=== PATIENT | male | born 1935 | race African-American/Black ===

== ENCOUNTER 2019-06-06 15:47 | Inpatient (IN) | payer MEDICARE, OTHER ==
[~2019-06-06] VITALS: Ht 165.1 cm; Wt 68.5 kg
--- NOTE | 2019-06-06 16:00 | NUR ---
ED Nurse Note: patient broughtin by ambulance RA 26 from home c/o generalized weakness x 1 day. patient's BP on scene was 86 SBP. upon arrival sbp was 96. 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 patient reports he is ambulatory.
[2019-06-06 16:47] LABS: ANION GAP 10 mmol/L (5-15); BLOOD UREA NITROGEN 12 mg/dL (7-18); CARBON DIOXIDE 25 MMOL/L (21-32); CHLORIDE 109 MMOL/L (98-107); CREATININE 1.4 MG/DL (0.55-1.30); POTASSIUM 4.4 MMOL/L (3.5-5.1); SODIUM 143 MMOL/L (136-145)
[2019-06-06 16:51] LABS: BASOPHILS % (AUTO) 0.9 % (0.0-2.0); HEMATOCRIT 28.1 % (42.0-52.0); HEMOGLOBIN 9.4 G/DL (14.2-18.0); LYMPHOCYTES % (AUTO) 16.7 % (20.0-45.0); MEAN CORPUSCULAR VOLUME 90 FL (80-99); MONOCYTES % (AUTO) 7.1 % (1.0-10.0); NEUTROPHILS % (AUTO) 72.3 % (45.0-75.0); PLATELET COUNT 395 K/UL (150-450); RED BLOOD COUNT 3.11 M/UL (4.70-6.10); RED CELL DISTRIBUTION WIDTH 10.1 % (11.6-14.8); WHITE BLOOD COUNT 16.3 K/UL (4.8-10.8)
[2019-06-06 16:55] VITALS: BP 102/55
[2019-06-06 17:01] LABS: ALANINE AMINOTRANSFERASE 22 U/L (12-78); ALBUMIN 3.1 G/DL (3.4-5.0); ALBUMIN/GLOBULIN RATIO 0.8 (1.0-2.7); ALKALINE PHOSPHATASE 88 U/L (46-116); ASPARTATE AMINO TRANSFERASE 22 U/L (15-37); BILIRUBIN,TOTAL 0.3 MG/DL (0.2-1.0); CKMB 0.6 NG/ML (0.0-3.6); CREATINE KINASE 43 U/L (26-308); PHOSPHORUS 2.9 MG/DL (2.5-4.9)
--- NOTE | 2019-06-06 17:54 | Emergency Room Report ---
History of Present Illness General Chief Complaint: Generalized Weakness Source: EMS Present Illness HPI 83-year-old male presents to emergency room with weakness and dizziness, found to be hypertensive by ALS. pt reported yesterday before bed he felt well, this morning he woke up very weak, tired and confused. As per family at bedside this morning he was confused and she check glucose which was in 260s. Pt also felt very dizzy with an unsteady gait. his hx is singificant for DM, HTN, Asthma, CVA and DVT. he takes anticoagulation. he denies chest pain or SOB. Allergies: Coded Allergies: No Known Allergies (Verified , 07/25/09) Nursing Documentation-PMH Hx Diabetes: Yes Review of Systems All Other Systems: limited - mental status change Physical Exam Vital Signs Date Time Temp Pulse Resp B/P (MAP) Pulse Ox O2 Delivery O2 Flow Rate FiO2 06/06/19 15:42 60 19 99/43 (61) 98 Room Air 06/06/19 16:55 97.8 Sp02 EP Interpretation: reviewed General Appearance: well appearing, no apparent distress, non-toxic Head: normocephalic, atraumatic Eyes: bilateral eye normal inspection ENT: hearing grossly normal, EOM grossly intact, moist mucus membranes Neck: supple Respiratory: lungs clear, normal breath sounds, no respiratory distress, speaking full sentences Cardiovascular #1: regular rate, rhythm, normal capillary refill Cardiovascular #2: 2+ radial (R), 2+ radial (L) Gastrointestinal: soft, non-distended Rectal: deferred Musculoskeletal: moves extm spontaneously, no lower extremity edema Neurologic: alert, motor strength/tone normal, customer specialist III-XII nml as tested, oriented - Person, distal neuro normal, sensory intact, other - confused Psychiatric: mood/affect normal Skin: warm/dry, normal turgor Medical Decision Making ER Course 83yohx of cva, dm, htn, and dvt on AC, pw dizziness, confusion, weakness, found to be hypotensive and confused on exam Given pts hx of cva there is a concern for posterior cerebral cva as pt has presenting symptoms of dizziness. Initial BP was noted to be hypotensive but after fluid bolus patient BP improved and continued to stay stable. Pt swallow exam wnl so given PO food as he requested. Discussed admission vs outpt work up. As pt has multiple risk factors patient admitted for inpatient for further work up Case discussed with Dr Lucio who accepted pt to tele. Laboratory Tests Test 06/06/19 16:00 06/06/19 17:00 06/06/19 17:55 White Blood Count 16.3 K/UL (4.8-10.8) H Red Blood Count 3.11 M/UL (4.70-6.10) L Hemoglobin 9.4 G/DL (14.2-18.0) L Hematocrit 28.1 % (42.0-52.0) L Mean Corpuscular Volume 90 FL (80-99) Mean Corpuscular Hemoglobin 30.3 PG (27.0-31.0) Mean Corpuscular Hemoglobin Concent 33.5 G/DL (32.0-36.0) Red Cell Distribution Width 10.1 % (11.6-14.8) L Platelet Count 395 K/UL (150-450) Mean Platelet Volume 5.8 FL (6.5-10.1) L Neutrophils (%) (Auto) 72.3 % (45.0-75.0) Lymphocytes (%) (Auto) 16.7 % (20.0-45.0) L Monocytes (%) (Auto) 7.1 % (1.0-10.0) Eosinophils (%) (Auto) 3.0 % (0.0-3.0) Basophils (%) (Auto) 0.9 % (0.0-2.0) Sodium Level 143 MMOL/L (136-145) Potassium Level 4.4 MMOL/L (3.5-5.1) Chloride Level 109 MMOL/L (98-107) H Carbon Dioxide Level 25 MMOL/L (21-32) Anion Gap 10 mmol/L (5-15) Blood Urea Nitrogen 12 mg/dL (7-18) Creatinine 1.4 MG/DL (0.55-1.30) H Estimate Glomerular Filtration Rate mL/min (>60) Glucose Level 218 MG/DL (74-106) H Lactic Acid Level 3.40 mmol/L (0.4-2.0) H 2.80 mmol/L (0.66-2.22) H Calcium Level 8.0 MG/DL (8.5-10.1) L Phosphorus Level 2.9 MG/DL (2.5-4.9) Magnesium Level 1.8 MG/DL (1.8-2.4) Total Bilirubin 0.3 MG/DL (0.2-1.0) Aspartate Amino Transferase (AST) 22 U/L (15-37) Alanine Aminotransferase (ALT) 22 U/L (12-78) Alkaline Phosphatase 88 U/L (46-116) Total Creatine Kinase 43 U/L (26-308) Creatine Kinase MB 0.6 NG/ML (0.0-3.6) Creatine Kinase MB Relative Index 1.3 Troponin I 0.000 ng/mL (0.000-0.056) Pro-B-Type Natriuretic Peptide 450 pg/mL (0-125) H Total Protein 7.2 G/DL (6.4-8.2) Albumin 3.1 G/DL (3.4-5.0) L Globulin 4.1 g/dL Albumin/Globulin Ratio 0.8 (1.0-2.7) L Lipase 142 U/L (73-393) Urine Color Yellow Urine Appearance Clear Urine pH 5 (4.5-8.0) Urine Specific [place] 1.020 (1.005-1.035) Urine Protein Negative (NEGATIVE) Urine Glucose (UA) 2+ (NEGATIVE) H Urine Ketones 1+ (NEGATIVE) H Urine Blood Negative (NEGATIVE) Urine Nitrite Negative (NEGATIVE) Urine Bilirubin Negative (NEGATIVE) Urine Urobilinogen 1 MG/DL (0.0-1.0) H Urine Leukocyte Esterase Negative (NEGATIVE) Microbiology Date/Time Source Procedure Growth Status 06/06/19 16:20 Nasal Nares - Final Complete 06/06/19 16:20 Nasal Nares - Final Complete Procedure Result INFLUENZA A ANTIGEN Final INFLUENZAE A RESULT NEGATIVE REF RANGE: NEGATIVE INFLUENZA B ANTIGEN Final INFLUENZAE B RESULT NEGATIVE REF RANGE: NEGATIVE EKG Diagnostic Results EKG Time: 15:53 EP Interpretation: Rate of 61 Rate: normal Rhythm: NSR ST Segments: no acute changes CT/MRI/US Diagnostic Results CT/MRI/US Diagnostic Results : Impression Preliminary Findings Only See Final Report For Complete Findings CT HEAD Without Contrast: Comparison head CT 07/25/2009. Cerebral volume loss. No hemorrhage. Foci of encephalomalacia right frontal, parietal and occipital lobes. There is some gas in the veins in the flight paramedic spaces and right parotid space, presumably iatrogenic. Impression: No acute intracranial pathology. Skull base and bony calvarium are intact. Last Vital Signs Date Time Temp Pulse Resp B/P (MAP) Pulse Ox O2 Delivery O2 Flow Rate FiO2 06/06/19 16:55 97.8 71 16 102/55 100 Room Air Disposition: ADMITTED INPATIENT Condition: Serious Referrals: NON PHYSICIAN (PCP) Manoj Mills M.D. Jun 06, 2019 17:54
[2019-06-06] MEDS ORDERED: CLOPIDOGREL75 MG ORAL (18:11)
[2019-06-06] MEDS ORDERED: AVODART0.5 MG ORAL (18:11)
[2019-06-06] MEDS ORDERED: FERROUS SULFAT325 M2 ORAL (18:11)
[2019-06-06 18:13] LABS: APPEARANCE,URINE CLEAR; BILIRUBIN, URINE NEGATIVE (NEGATIVE); GLUCOSE, URINE (UA) 2+ (NEGATIVE); KETONES,URINE 1+ (NEGATIVE); LEUKOCYTE ESTERASE ,URINE NEGATIVE (NEGATIVE); NITRITE,URINE NEGATIVE (NEGATIVE); PH,URINE 5 (4.5-8.0); PROTEIN,URINE NEGATIVE (NEGATIVE); UROBILINOGEN,URINE 1 MG/DL (0.0-1.0)
[2019-06-06] MEDS ORDERED: TRAMADOL HCL50 MG ORAL (18:13)
[2019-06-06] MEDS ORDERED: CRESTOR10 M2 ORAL (18:13)
[2019-06-06] MEDS ORDERED: TRADJENTA5 MG PO (18:13)
[2019-06-06] MEDS ORDERED: METFORMIN HCL850 M1 ORAL (18:13)
[2019-06-06] MEDS ORDERED: OYSTER SHELL 51 EAC3 PO (18:13)
[2019-06-06 18:16] LABS: COLOR,URINE YELLOW
[2019-06-06] MEDS ORDERED: Cefepime HCl 2 GM in NS 110 ML IV ONE (19:00)
[2019-06-06] MEDS ORDERED: Vancomycin 1 GM in NS 275 ML IV ONE (19:00)
--- NOTE | 2019-06-06 19:13 | NUR ---
HAND-OFF: Report given to Pilar CA.
[2019-06-06 19:15] VITALS: BP 153/63
--- NOTE | 2019-06-06 19:15 | NUR ---
ED Nurse Note: Pt received from LANNY Vizcarra. Pt resting comfortably in bed at this time, aaox4, no acute distress noted. Vss as charted. Pt has IV antibiotics infusing at this time as ordered. Will continue to monitor.
--- NOTE | 2019-06-06 19:16 | Diagnostic Imaging Report ---
Indication: Headache Technique: Contiguous 5 mm thick transaxial imaging of the head obtained in a Siemens Sensation [address] scanner. Soft tissue and bone windows generated. Automatic Exposure Control was utilized. Total Dose length Product (DLP): 1363.[address] Dose Index Volume (CTDIvol): 62.7 mGy Comparison: 07/25/2009 Findings: There is mild prominence of the ventricles, basal cisterns, and cerebral sulci consistent with atrophy. There is a focus of encephalomalacia involving the cortex and subcortical white matter in the right occipital region consistent with an old infarct. This was seen previously. Mild, nonspecific, white matter hypoattenuation is noted throughout the brain consistent with chronic small vessel disease. There is no midline shift, edema, acute hemorrhage, mass effect, or abnormal extra-axial fluid collections. Bones are unremarkable. Impression: No acute intracranial bleed, mass effect or edema. Old right occipital infarct Mild atrophy of the brain. Nonspecific white matter hypoattenuation probably due to chronic small vessel disease. [facility] has communicated the preliminary results to the Emergency Department. Their findings are largely concordant with this report. The CT scanner at [facility] is accredited by the [employer] and the scans are performed using dose optimization techniques as appropriate to a performed exam including Automatic Exposure control.
--- NOTE | 2019-06-06 20:00 | NUR ---
ED Nurse Note: Report given to LANNY Chan.
--- NOTE | 2019-06-06 20:40 | NUR ---
ED Nurse Note: Pt stable to transfer to tele unit. Pt is aaxo4, no acute distress noted. Pt transported to unit via gurney via RN and tech. 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 Pt belongings sent with pt.
--- NOTE | 2019-06-06 20:50 | NUR ---
NURSE NOTES: received pt from ER Pilar RN., pt is AO x4, and pt's daughter at the bedside. pt states no pain at this moment. pt is at the RA no Respiratory distress noted. VSS: 152/72 HR 74 O2sat 96% T 97.5. Right FA 20G and 20G Left Hand clean, intact, and patent. bed at the lowest position, alarmed, and locked. Belonging signed by pt. pt is in Sinus rhythm, and pt wants to be full code status at this moment. Home medications were brought to ER and reviewed at the ER. pt took back home medications to pt's house after done reviewing at the ER. call light within reach. will continue to monitor pt with plan of care.
--- NOTE | 2019-06-06 22:13 | NUR ---
NURSE NOTES: notified Dr. Schulte regarding admission order. will wait for call back.
--- NOTE | 2019-06-06 22:18 | NUR ---
NURSE NOTES: Dr. Schulte put admission orders, will noted and carry on.
--- NOTE | 2019-06-06 22:35 | NUR ---
NURSE NOTES: received orders from Dr. Coyne, will noted and carry on.
[2019-06-06] MEDS: cefTRIAXone 1 GM in D5W 55 ML IVPB SCH (23:59)
[2019-06-07 00:38] VITALS: BP 125/59
[2019-06-07] MEDS ORDERED: Albuterol/Ipratropium 3ml neb HHN PRN (01:00)
[2019-06-07] MEDS ORDERED: Acetaminophen 500mg (ES) tab ORAL PRN (01:00)
--- NOTE | 2019-06-07 01:30 | NUR ---
NURSE NOTES: pt is sleeping in RA, no SOB noted. pt is changing position by himself. call light within reach. will continue to monitor.
[2019-06-07] MEDS ORDERED: traMADol 50mg tab ORAL PRN (03:00)
[2019-06-07 04:00] VITALS: BP 125/67
[2019-06-07] MEDS: NovoLOG Insulin Flexpen SUBQ SCH ×4 (06:15→21:49)
[2019-06-07 07:13] LABS: BASOPHILS % (AUTO) 0.7 % (0.0-2.0); EOSINOPHILS % (AUTO) 4.1 % (0.0-3.0); HEMOGLOBIN 9.7 G/DL (14.2-18.0); LYMPHOCYTES % (AUTO) 22.4 % (20.0-45.0); MEAN CORPUSCULAR VOLUME 92 FL (80-99); NEUTROPHILS % (AUTO) 64.9 % (45.0-75.0); PLATELET COUNT 421 K/UL (150-450); RED BLOOD COUNT 3.17 M/UL (4.70-6.10); RED CELL DISTRIBUTION WIDTH 11.3 % (11.6-14.8)
[2019-06-07 07:22] LABS: ALANINE AMINOTRANSFERASE 21 U/L (12-78); ALBUMIN 2.8 G/DL (3.4-5.0); ALBUMIN/GLOBULIN RATIO 0.7 (1.0-2.7); ALKALINE PHOSPHATASE 84 U/L (46-116); ANION GAP 8 mmol/L (5-15); ASPARTATE AMINO TRANSFERASE 19 U/L (15-37); BILIRUBIN,TOTAL 0.5 MG/DL (0.2-1.0); BLOOD UREA NITROGEN 8 mg/dL (7-18); CALCIUM 7.7 MG/DL (8.5-10.1); CARBON DIOXIDE 24 MMOL/L (21-32); CHLORIDE 114 MMOL/L (98-107); CREATININE 0.9 MG/DL (0.55-1.30); POTASSIUM 3.9 MMOL/L (3.5-5.1); SODIUM 146 MMOL/L (136-145)
--- NOTE | 2019-06-07 07:35 | NUR ---
HAND-OFF: Report given to Regina CA., pt is in stable condition.
--- NOTE | 2019-06-07 07:36 | NUR ---
NURSE NOTES: Received report from LANNY Peralta. Patient in bed resting, no active s/s cardiac, respiratory distress noticed at this time. Patient AOx4, on room air, SR with HR 65. IV on right FA 20G, left hand 20G, asymptomatic, patent, intact. Endorsed dosage for home medication need clarification, will call family member to bring the meds or med list. Bed in lowest position, side rails upx2, call light within reach. Will continue to monitor.
[2019-06-07 08:00] VITALS: BP 142/70
[2019-06-07] MEDS ORDERED: Heparin 5000 units/ml inj SUBQ SCH (09:00)
--- NOTE | 2019-06-07 09:03 | NUR ---
RADIOLOGY DEPT., LATE ENTRY, CHEST X-RAY DONE BY WIL
[2019-06-07] MEDS: Calcium Carbonate 500mg w/Vit D 200iu tab ORAL SCH (09:22)
--- NOTE | 2019-06-07 09:36 | Consultation ---
History of Present Illness General Chief Complaint: Generalized Weakness Present Illness Allergies: Coded Allergies: No Known Allergies (Verified , 07/25/09) Medication History Scheduled Clopidogrel* (Clopidogrel*), Unknown Dose ORAL DAILY, (Reported) Dutasteride (Avodart), 0.5 MG ORAL DAILY, (Reported) Metformin Hcl* (Metformin Hcl*), 850 MG ORAL DAILY, (Reported) Rosuvastatin Calcium* (Crestor*), 10 MG ORAL DAILY, (Reported) Scheduled PRN Tramadol Hcl* (Ultram*), 50 MG ORAL Q6H PRN for For Pain, (Reported) Miscellaneous Medications Calcium Carbonate/Vitamin D3 (Oyster Shell 500Mg-Vit D3 5Mcg), 1 EACH PO, ( Reported) Ferrous Sulfate (Ferrous Sulfate), Unknown Dose ORAL, (Reported) Linagliptin (Tradjenta), 5 MG PO, (Reported) Patient History Healthcare decision maker Resuscitation status Full Code Advanced Directive on File Physical Exam Last 24 Hour Vital Signs Date Time Temp Pulse Resp B/P (MAP) Pulse Ox O2 Delivery O2 Flow Rate FiO2 06/07/19 08:01 70 20 96 Room Air 21 06/07/19 08:00 97.7 68 142/70 (94) 06/07/19 04:00 97.3 65 125/67 (86) 06/07/19 03:26 60 06/07/19 00:38 97.5 65 125/59 (81) 06/06/19 23:36 66 06/06/19 22:48 Room Air 06/06/19 21:22 61 06/06/19 20:40 97.3 70 15 147/66 97 Room Air 06/06/19 19:15 97.8 82 21 153/63 97 Room Air 06/06/19 16:55 97.8 71 16 102/55 100 Room Air 06/06/19 16:13 60 19 Room Air 06/06/19 15:42 60 19 99/43 (61) 98 Room Air Intake and Output 06/06/19 06/07/19 19:00 07:00 Intake Total 2000 ml 55 ml Output Total 300 ml Balance 2000 ml -245 ml IV Total 2000 ml 55 ml Output Urine Total 300 ml Laboratory Tests Test 06/06/19 16:00 06/06/19 17:00 06/06/19 17:55 06/07/19 05:33 White Blood Count 16.3 K/UL (4.8-10.8) H 13.0 K/UL (4.8-10.8) H Red Blood Count 3.11 M/UL (4.70-6.10) L 3.17 M/UL (4.70-6.10) L Hemoglobin 9.4 G/DL (14.2-18.0) L 9.7 G/DL (14.2-18.0) L Hematocrit 28.1 % (42.0-52.0) L 29.0 % (42.0-52.0) L Mean Corpuscular Volume 90 FL (80-99) 92 FL (80-99) Mean Corpuscular Hemoglobin 30.3 PG (27.0-31.0) 30.5 PG (27.0-31.0) Mean Corpuscular Hemoglobin Concent 33.5 G/DL (32.0-36.0) 33.3 G/DL (32.0-36.0) Red Cell Distribution Width 10.1 % (11.6-14.8) L 11.3 % (11.6-14.8) L Platelet Count 395 K/UL (150-450) 421 K/UL (150-450) Mean Platelet Volume 5.8 FL (6.5-10.1) L 5.7 FL (6.5-10.1) L Neutrophils (%) (Auto) 72.3 % (45.0-75.0) 64.9 % (45.0-75.0) Lymphocytes (%) (Auto) 16.7 % (20.0-45.0) L 22.4 % (20.0-45.0) Monocytes (%) (Auto) 7.1 % (1.0-10.0) 8.0 % (1.0-10.0) Eosinophils (%) (Auto) 3.0 % (0.0-3.0) 4.1 % (0.0-3.0) H Basophils (%) (Auto) 0.9 % (0.0-2.0) 0.7 % (0.0-2.0) Sodium Level 143 MMOL/L (136-145) 146 MMOL/L (136-145) H Potassium Level 4.4 MMOL/L (3.5-5.1) 3.9 MMOL/L (3.5-5.1) Chloride Level 109 MMOL/L (98-107) H 114 MMOL/L (98-107) H Carbon Dioxide Level 25 MMOL/L (21-32) 24 MMOL/L (21-32) Anion Gap 10 mmol/L (5-15) 8 mmol/L (5-15) Blood Urea Nitrogen 12 mg/dL (7-18) 8 mg/dL (7-18) Creatinine 1.4 MG/DL (0.55-1.30) H 0.9 MG/DL (0.55-1.30) Estimat Glomerular Filtration Rate mL/min (>60) mL/min (>60) Glucose Level 218 MG/DL (74-106) H 95 MG/DL (74-106) # Lactic Acid Level 3.40 mmol/L (0.4-2.0) H 2.80 mmol/L (0.66-2.22) H 1.00 mmol/L (0.4-2.0) Calcium Level 8.0 MG/DL (8.5-10.1) L 7.7 MG/DL (8.5-10.1) L Phosphorus Level 2.9 MG/DL (2.5-4.9) Magnesium Level 1.8 MG/DL (1.8-2.4) Total Bilirubin 0.3 MG/DL (0.2-1.0) 0.5 MG/DL (0.2-1.0) Aspartate Amino Transf (AST/SGOT) 22 U/L (15-37) 19 U/L (15-37) Alanine Aminotransferase (ALT/SGPT) 22 U/L (12-78) 21 U/L (12-78) Alkaline Phosphatase 88 U/L (46-116) 84 U/L (46-116) Total Creatine Kinase 43 U/L (26-308) Creatine Kinase MB 0.6 NG/ML (0.0-3.6) Creatine Kinase MB Relative Index 1.3 Troponin I 0.000 ng/mL (0.000-0.056) Pro-B-Type Natriuretic Peptide 450 pg/mL (0-125) H Total Protein 7.2 G/DL (6.4-8.2) 6.6 G/DL (6.4-8.2) Albumin 3.1 G/DL (3.4-5.0) L 2.8 G/DL (3.4-5.0) L Globulin 4.1 g/dL 3.8 g/dL Albumin/Globulin Ratio 0.8 (1.0-2.7) L 0.7 (1.0-2.7) L Lipase 142 U/L (73-393) Urine Color Yellow Urine Appearance Clear Urine pH 5 (4.5-8.0) Urine Specific [place] 1.020 (1.005-1.035) Urine Protein Negative (NEGATIVE) Urine Glucose (UA) 2+ (NEGATIVE) H Urine Ketones 1+ (NEGATIVE) H Urine Blood Negative (NEGATIVE) Urine Nitrite Negative (NEGATIVE) Urine Bilirubin Negative (NEGATIVE) Urine Urobilinogen 1 MG/DL (0.0-1.0) H Urine Leukocyte Esterase Negative (NEGATIVE) Microbiology Date/Time Source Procedure Growth Status 06/06/19 16:20 Nasal Nares - Final Complete 06/06/19 16:20 Nasal Nares - Final Complete 06/06/19 17:00 Straight Cath Urine Culture - Preliminary NO GROWTH Resulted Height (Feet): 5 Height (Inches): 5.00 Weight (Pounds): 151 Medications Current Medications Medications (Trade) Dose Ordered Sig/Maggie Route PRN Reason Start Time Stop Time Status Last Admin Dose Admin Acetaminophen (Tylenol) 500 mg Q4H PRN ORAL Mild Pain/Temp > 100.5 06/07/19 01:00 07/07/19 00:59 Albuterol/ Ipratropium (Albuterol/ Ipratropium) 3 ml Q6HRT PRN HHN Shortness of Breath 06/07/19 01:00 06/12/19 00:59 Calcium/Vitamin D (OsCal D) 1 tab DAILY ORAL 06/07/19 09:00 07/07/19 08:59 06/07/19 09:22 Ceftriaxone Sodium 1 gm/ Dextrose 55 ml @ 110 mls/hr Q24H IVPB 06/06/19 23:00 06/13/19 22:59 06/06/19 23:59 Clopidogrel Bisulfate (Plavix) 75 mg DAILY ORAL 06/08/19 09:00 07/08/19 08:59 Dextrose (Dextrose 50%) 25 ml Q30M PRN IV Hypoglycemia 06/07/19 01:00 07/07/19 00:59 Dextrose (Dextrose 50%) 50 ml Q30M PRN IV Hypoglycemia 06/07/19 01:00 07/07/19 00:59 Heparin Sodium (Porcine) (Heparin 5000 units/ml) 5,000 units EVERY 12 HOURS SUBQ 06/07/19 09:00 07/07/19 08:59 06/07/19 09:24 Insulin Aspart (NovoLOG) BEFORE MEALS AND HS SUBQ 06/07/19 06:30 07/07/19 06:29 Tramadol HCl (Ultram) 50 mg Q6H PRN ORAL For Pain 06/07/19 03:00 06/14/19 02:59 Assessment/Plan Assessment/Plan: Hematology Consultation REQ MD: Clemente Lucio, RFC: DVT history and AiD eval, on iron RFA: Generalized Weakness Source: EMS DOS: 06/07/19 ID Called to eval by Dr. Lucio, he is a 83-year-old male presents to emergency room with weakness and dizziness, found to be hypertensive by ALS. pt reported yesterday before bed he felt well, this morning he woke up very weak, tired and confused. As per family at bedside this morning he was confused and she check glucose which was in 260s. Pt also felt very dizzy with an unsteady gait. his hx is singificant for DM, HTN, Asthma, CVA and DVT. he takes anticoagulation. he denies chest pain or SOB. Reviewed his meds and is on ferrous sulfate and plavix. Past Medical Hx: DM, HTN, Asthma, CVA and DVT Allergies: No Known Allergies (Verified , 07/25/09) Review of Systems limited - mental status change, neg 14 point except as noted as above Physical Exam Vital Signs: reviewed Gen: well appearing, no apparent distress, nt HEENT: normocephalic, atraumatic, bilateral eye normal inspection ENT: hearing grossly normal, EOM grossly intact, moist mucus membrane PulM: lungs clear, normal breath sounds CV: regular rate, rhythm, no mgr Neuro: non-focal Labs: reviewed Imaging: noted Assessment and Recs: # Dvt of the left leg and active on the right -- the final imaging is pending and pending further results --> continue on lovenox treatment dose --> labs noted, hgb stable, continue to monitor --> no e/o hemolysis # Anemia of iron deficiency as noted in the past --> on ferrous sulfate po --> no hemolysis is noted --> meds reviewed --> have ordered for anemia panel # Dizziness, confusion, weakness, found to be hypotensive and confused on exam --> continue on fluids # Dizziness concerning r/o cva --> CT of the brain is negative, no bleeding noted # Hypotensive but after fluid bolus patient BP improved and continued to stay stable. --> on fluids, to continue # DM2 -- accuchecks qac and qhs --> a1c goal <8 DW Rn and appreciate consultation Galen Recio MD Jun 07, 2019 09:36
--- NOTE | 2019-06-07 09:54 | NUR ---
ST EVALUATION AND D/C SUMMARY: REFERRED FOR SWALLOW EVALUATION BY DR EASLEY (DR RAI PRIMARY MD), SEE EVALUATION IN [facility] ACTIVITY SECTION. DYSPHAGIA RISK FACTORS FOR THIS ADVANCED AGED 83 Y.O.M.: ACUTE DIZZY, HYPER/HYPOTENSIVE, WEAK, AMS - CONFUSED. LUNGS CLEAR NOW, RESP RATE 19 AND 02 SATS GOOD ON ROOM AIR. 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 COMORBIDITIES: ASTHMA, DM, HTN, [facility] IN 2009 FOR DIZZINESS, SMOKING STILL 15 YEARS ONE PACK PER WEEK, NO ETOH, C/O TINNITUS AND HEARING LOSS (RECENTLY SAW ENT) NO MEDS. FROM HOME ON REGULAR TEXTURE DIET AND THIN LIQUIDS. [facility] SOFT CHOPPED DIET AND THIN LIQUIDS WITH GOOD INTAKE. HAS UPPER FULL DENTURES AND MISSING SOME TEETH ON RIGHT LOWER (HAS PARTIAL LOWER DENTURES AT HOME). ALERT AND ABLE TO EXPRESS SELF IN CLEAR SPEECH/VOICE ABOUT HIS DESIRE TO BE TRANSFERRED TO [facility] WHERE HE HAS ALL OF HIS DOCTORS. PATIENT WAS SUPPOSED TO HAVE SURGERY ON HIS LEG (CLOT) TOMORROW. SINCE HE FORGOT HIS GLASSES, HE WAS ASSISTED TO CANCEL THAT APPOINTMENT. INITIAL CONFUSION RESOLVED PATIENT IS ABLE TO RECALL RECENT INFORMATION AND IS ORIENTED X4. INITIAL IMPRESSIONS GROSSLY FUNCTIONAL SWALLOW WITH ALL CONSISTENCIES GIVEN AND PILLS (LARGE WHEN CUT IN HALF), NO OVERT ASPIRATION (? SILENT ASP RISK BUT CVA WAS 20 YEARS AGO AND LUNGS ARE CLEAR). GIVEN THIN LIQUIDS VIA STRAW SEQUENTIAL SIPS, GROSSLY TIMELY AND FUNCTIONAL SWALLOW W/O ORAL RESIDUE NOR OVERT ASPIRATION. GIVEN TSP PUREED AND MASTICATED SOLID (1/2 CRACKER), GROSSLY TIMELY AND FUNCTIONAL SWALLOW W/O ORAL RESIDUE NOR OVERT ASPIRATION RECOMMENDATIONS: CONTINUE WITH PO INTAKE AND UPGRADE TO REGULAR TEXTURE DIET AND THIN LIQUIDS W/O NEED FOR SPECIFIC ASPIRATION PRECAUTIONS AT THIS TIME. WILL D/C FROM [facility] AT THIS TIME DUE TO GROSSLY FUNCTIONAL SWALLOW. D/W MATHEW CA, AND DR RAI (WHO AGREES WITH RECOMMENDATIONS). Addendum: 06/07/19 at 1003 by STUART MATOS PATIENT TOLERATED HIS LARGE PILL WHOLE (WHEN IT WAS CUT IN HALF HIS BASELINE) WITH WATER W/O PROBLEMS. NO POLST/AD REGARDING ARTIFICIAL NUTRITION IF NEEDED.
[2019-06-07 10:02] LABS: FERRITIN 55 NG/ML (8-388); LACTATE DEHYDROGENASE 176 U/L (81-234)
[2019-06-07 10:18] LABS: IRON 75 ug/dL (50-175); TOTAL IRON BINDING CAPACITY 224 ug/dL (250-450)
[2019-06-07 10:19] LABS: % IRON SATURATION 33 % (15-50)
--- NOTE | 2019-06-07 10:22 | Cardiac Electrophysiology PN ---
Subjective Subjective [id number] Objective Last 24 Hour Vital Signs Date Time Temp Pulse Resp B/P (MAP) Pulse Ox O2 Delivery O2 Flow Rate FiO2 06/07/19 08:01 70 20 96 Room Air 21 06/07/19 08:00 97.7 68 142/70 (94) 06/07/19 04:00 97.3 65 125/67 (86) 06/07/19 03:26 60 06/07/19 00:38 97.5 65 125/59 (81) 06/06/19 23:36 66 06/06/19 22:48 Room Air 06/06/19 21:22 61 06/06/19 20:40 97.3 70 15 147/66 97 Room Air 06/06/19 19:15 97.8 82 21 153/63 97 Room Air 06/06/19 16:55 97.8 71 16 102/55 100 Room Air 06/06/19 16:13 60 19 Room Air 06/06/19 15:42 60 19 99/43 (61) 98 Room Air Intake and Output 06/06/19 06/07/19 19:00 07:00 Intake Total 2000 ml 55 ml Output Total 300 ml Balance 2000 ml -245 ml IV Total 2000 ml 55 ml Output Urine Total 300 ml Laboratory Tests Test 06/06/19 16:00 06/06/19 17:00 06/06/19 17:55 06/07/19 05:33 White Blood Count 16.3 K/UL (4.8-10.8) H 13.0 K/UL (4.8-10.8) H Red Blood Count 3.11 M/UL (4.70-6.10) L 3.17 M/UL (4.70-6.10) L Hemoglobin 9.4 G/DL (14.2-18.0) L 9.7 G/DL (14.2-18.0) L Hematocrit 28.1 % (42.0-52.0) L 29.0 % (42.0-52.0) L Mean Corpuscular Volume 90 FL (80-99) 92 FL (80-99) Mean Corpuscular Hemoglobin 30.3 PG (27.0-31.0) 30.5 PG (27.0-31.0) Mean Corpuscular Hemoglobin Concent 33.5 G/DL (32.0-36.0) 33.3 G/DL (32.0-36.0) Red Cell Distribution Width 10.1 % (11.6-14.8) L 11.3 % (11.6-14.8) L Platelet Count 395 K/UL (150-450) 421 K/UL (150-450) Mean Platelet Volume 5.8 FL (6.5-10.1) L 5.7 FL (6.5-10.1) L Neutrophils (%) (Auto) 72.3 % (45.0-75.0) 64.9 % (45.0-75.0) Lymphocytes (%) (Auto) 16.7 % (20.0-45.0) L 22.4 % (20.0-45.0) Monocytes (%) (Auto) 7.1 % (1.0-10.0) 8.0 % (1.0-10.0) Eosinophils (%) (Auto) 3.0 % (0.0-3.0) 4.1 % (0.0-3.0) H Basophils (%) (Auto) 0.9 % (0.0-2.0) 0.7 % (0.0-2.0) Sodium Level 143 MMOL/L (136-145) 146 MMOL/L (136-145) H Potassium Level 4.4 MMOL/L (3.5-5.1) 3.9 MMOL/L (3.5-5.1) Chloride Level 109 MMOL/L (98-107) H 114 MMOL/L (98-107) H Carbon Dioxide Level 25 MMOL/L (21-32) 24 MMOL/L (21-32) Anion Gap 10 mmol/L (5-15) 8 mmol/L (5-15) Blood Urea Nitrogen 12 mg/dL (7-18) 8 mg/dL (7-18) Creatinine 1.4 MG/DL (0.55-1.30) H 0.9 MG/DL (0.55-1.30) Estimat Glomerular Filtration Rate mL/min (>60) mL/min (>60) Glucose Level 218 MG/DL (74-106) H 95 MG/DL (74-106) # Lactic Acid Level 3.40 mmol/L (0.4-2.0) H 2.80 mmol/L (0.66-2.22) H 1.00 mmol/L (0.4-2.0) Calcium Level 8.0 MG/DL (8.5-10.1) L 7.7 MG/DL (8.5-10.1) L Phosphorus Level 2.9 MG/DL (2.5-4.9) Magnesium Level 1.8 MG/DL (1.8-2.4) Total Bilirubin 0.3 MG/DL (0.2-1.0) 0.5 MG/DL (0.2-1.0) Aspartate Amino Transf (AST/SGOT) 22 U/L (15-37) 19 U/L (15-37) Alanine Aminotransferase (ALT/SGPT) 22 U/L (12-78) 21 U/L (12-78) Alkaline Phosphatase 88 U/L (46-116) 84 U/L (46-116) Total Creatine Kinase 43 U/L (26-308) Creatine Kinase MB 0.6 NG/ML (0.0-3.6) Creatine Kinase MB Relative Index 1.3 Troponin I 0.000 ng/mL (0.000-0.056) Pro-B-Type Natriuretic Peptide 450 pg/mL (0-125) H Total Protein 7.2 G/DL (6.4-8.2) 6.6 G/DL (6.4-8.2) Albumin 3.1 G/DL (3.4-5.0) L 2.8 G/DL (3.4-5.0) L Globulin 4.1 g/dL 3.8 g/dL Albumin/Globulin Ratio 0.8 (1.0-2.7) L 0.7 (1.0-2.7) L Lipase 142 U/L (73-393) Urine Color Yellow Urine Appearance Clear Urine pH 5 (4.5-8.0) Urine Specific [place] 1.020 (1.005-1.035) Urine Protein Negative (NEGATIVE) Urine Glucose (UA) 2+ (NEGATIVE) H Urine Ketones 1+ (NEGATIVE) H Urine Blood Negative (NEGATIVE) Urine Nitrite Negative (NEGATIVE) Urine Bilirubin Negative (NEGATIVE) Urine Urobilinogen 1 MG/DL (0.0-1.0) H Urine Leukocyte Esterase Negative (NEGATIVE) Reticulocyte Count Pending Iron Level 75 ug/dL (50-175) Total Iron Binding Capacity 224 ug/dL (250-450) L Percent Iron Saturation 33 % (15-50) Unsaturated Iron Binding 149 ug/dL (112-346) Ferritin 55 NG/ML (8-388) Lactate Dehydrogenase 176 U/L (81-234) Carcinoembryonic Antigen Pending Vitamin B12 Level 499 PG/ML (193-986) Thyroid Stimulating Hormone (TSH) 1.754 uiU/mL (0.358-3.740) Microbiology Date/Time Source Procedure Growth Status 06/06/19 16:20 Nasal Nares - Final Complete 06/06/19 16:20 Nasal Nares - Final Complete 06/06/19 17:00 Straight Cath Urine Culture - Preliminary NO GROWTH Resulted Umer Harley MD Jun 07, 2019 10:22
--- NOTE | 2019-06-07 11:56 | Pulmonology Progress Note ---
Assessment/Plan Assessment/Plan Pulmonary Consultation HPI Patient is a 83-year-old male admitted with with weakness and dizziness, Past history of DM, HTN, Asthma, CVA and DVT. he takes anticoagulation. he denies chest pain or SOB. Allergies: Coded Allergies: No Known Allergies (Verified , 07/25/09) Past Medical History: DM, HTN, Asthma, CVA and DVT All Other Systems: limited - mental status change Physical Exam Vital Signs Noted Date Time Temp Pulse Resp B/P (MAP) Pulse Ox O2 Delivery O2 Flow Rate FiO2 06/06/19 15:42 60 19 99/43 (61) 98 Room Air 06/06/19 16:55 97.8 General Appearance: well appearing, no apparent distress, non-toxic Head: normocephalic, atraumatic Eyes: bilateral eye normal inspection ENT: hearing grossly normal, EOM grossly intact, moist mucus membranes Neck: supple Respiratory: lungs clear, normal breath sounds, no respiratory distress, speaking full sentences Cardiovascular: regular rate, rhythm, HS1, HS2 normal,normal capillary refill Gastrointestinal: soft, non-distended Musculoskeletal: moves extm spontaneously, no lower extremity edema Neurologic: alert, motor strength/tone normal, property 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 III-XII nml as tested, oriented - Person, distal neuro normal, sensory intact, other - confused Skin: warm/dry, normal turgor Impression: Possible Sepsis Hypertension Diabetes Asthma 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 Previous DVT on Lovenox Plan: CXR IV AB per ID HHN AC per Hematology VESSEL [employer]FFIC [employer]ER Medications PPX O2 PRN Laboratory Tests Test 06/06/19 16:00 06/06/19 17:00 06/06/19 17:55 White Blood Count 16.3 K/UL (4.8-10.8) H Red Blood Count 3.11 M/UL (4.70-6.10) L Hemoglobin 9.4 G/DL (14.2-18.0) L Hematocrit 28.1 % (42.0-52.0) L Mean Corpuscular Volume 90 FL (80-99) Mean Corpuscular Hemoglobin 30.3 PG (27.0-31.0) Mean Corpuscular Hemoglobin Concent 33.5 G/DL (32.0-36.0) Red Cell Distribution Width 10.1 % (11.6-14.8) L Platelet Count 395 K/UL (150-450) Mean Platelet Volume 5.8 FL (6.5-10.1) L Neutrophils (%) (Auto) 72.3 % (45.0-75.0) Lymphocytes (%) (Auto) 16.7 % (20.0-45.0) L Monocytes (%) (Auto) 7.1 % (1.0-10.0) Eosinophils (%) (Auto) 3.0 % (0.0-3.0) Basophils (%) (Auto) 0.9 % (0.0-2.0) Sodium Level 143 MMOL/L (136-145) Potassium Level 4.4 MMOL/L (3.5-5.1) Chloride Level 109 MMOL/L (98-107) H Carbon Dioxide Level 25 MMOL/L (21-32) Anion Gap 10 mmol/L (5-15) Blood Urea Nitrogen 12 mg/dL (7-18) Creatinine 1.4 MG/DL (0.55-1.30) H Estimate Glomerular Filtration Rate mL/min (>60) Glucose Level 218 MG/DL (74-106) H Lactic Acid Level 3.40 mmol/L (0.4-2.0) H 2.80 mmol/L (0.66-2.22) H Calcium Level 8.0 MG/DL (8.5-10.1) L Phosphorus Level 2.9 MG/DL (2.5-4.9) Magnesium Level 1.8 MG/DL (1.8-2.4) Total Bilirubin 0.3 MG/DL (0.2-1.0) Aspartate Amino Transferase (AST) 22 U/L (15-37) Alanine Aminotransferase (ALT) 22 U/L (12-78) Alkaline Phosphatase 88 U/L (46-116) Total Creatine Kinase 43 U/L (26-308) Creatine Kinase MB 0.6 NG/ML (0.0-3.6) Creatine Kinase MB Relative Index 1.3 Troponin I 0.000 ng/mL (0.000-0.056) Pro-B-Type Natriuretic Peptide 450 pg/mL (0-125) H Total Protein 7.2 G/DL (6.4-8.2) Albumin 3.1 G/DL (3.4-5.0) L Globulin 4.1 g/dL Albumin/Globulin Ratio 0.8 (1.0-2.7) L Lipase 142 U/L (73-393) Urine Color Yellow Urine Appearance Clear Urine pH 5 (4.5-8.0) Urine Specific [place] 1.020 (1.005-1.035) Urine Protein Negative (NEGATIVE) Urine Glucose (UA) 2+ (NEGATIVE) H Urine Ketones 1+ (NEGATIVE) H Urine Blood Negative (NEGATIVE) Urine Nitrite Negative (NEGATIVE) Urine Bilirubin Negative (NEGATIVE) Urine Urobilinogen 1 MG/DL (0.0-1.0) H Urine Leukocyte Esterase Negative (NEGATIVE) Microbiology Date/Time Source Procedure Growth Status 06/06/19 16:20 Nasal Nares - Final Complete 06/06/19 16:20 Nasal Nares - Final Complete Procedure Result INFLUENZA A ANTIGEN Final INFLUENZAE A RESULT NEGATIVE REF RANGE: NEGATIVE INFLUENZA B ANTIGEN Final INFLUENZAE B RESULT NEGATIVE REF RANGE: NEGATIVE EKG Time: Rate of 61 Rate: normal Rhythm: NSR ST Segments: no acute changes CT HEAD Without Contrast: Comparison head CT 07/25/2009. Cerebral volume loss. No hemorrhage. Foci of encephalomalacia right frontal, parietal and occipital lobes. There is some gas in the veins in the police detective spaces and right parotid space, presumably iatrogenic. Impression: No acute intracranial pathology. Subjective ROS Limited/Unobtainable: No Allergies: Coded Allergies: No Known Allergies (Verified , 07/25/09) Objective Last 24 Hour Vital Signs Date Time Temp Pulse Resp B/P (MAP) Pulse Ox O2 Delivery O2 Flow Rate FiO2 06/07/19 09:00 Room Air 06/07/19 08:01 70 20 96 Room Air 21 06/07/19 08:00 64 06/07/19 08:00 97.7 68 142/70 (94) 06/07/19 04:00 97.3 65 125/67 (86) 06/07/19 03:26 60 06/07/19 00:38 97.5 65 125/59 (81) 06/06/19 23:36 66 06/06/19 22:48 Room Air 06/06/19 21:22 61 06/06/19 20:40 97.3 70 15 147/66 97 Room Air 06/06/19 19:15 97.8 82 21 153/63 97 Room Air 06/06/19 16:55 97.8 71 16 102/55 100 Room Air 06/06/19 16:13 60 19 Room Air 06/06/19 15:42 60 19 99/43 (61) 98 Room Air Intake and Output 06/06/19 06/07/19 19:00 07:00 Intake Total 2000 ml 55 ml Output Total 300 ml Balance 2000 ml -245 ml IV Total 2000 ml 55 ml Output Urine Total 300 ml Microbiology Date/Time Source Procedure Growth Status 06/06/19 16:20 Nasal Nares - Final Complete 06/06/19 16:20 Nasal Nares - Final Complete 06/06/19 17:00 Straight Cath Urine Culture - Preliminary NO GROWTH Resulted Laboratory Tests 06/06/19 16:00: White Blood Count 16.3H, Red Blood Count 3.11L, Hemoglobin 9.4L, Hematocrit 28.1L, Mean Corpuscular Volume 90, Mean Corpuscular Hemoglobin 30.3, Mean Corpuscular Hemoglobin Concent 33.5, Red Cell Distribution Width 10.1L, Platelet Count 395, Mean Platelet Volume 5.8L, Neutrophils (%) (Auto) 72.3, Lymphocytes (%) (Auto) 16.7L, Monocytes (%) (Auto) 7.1, Eosinophils (%) (Auto) 3.0, Basophils (%) (Auto) 0.9, Sodium Level 143, Potassium Level 4.4, Chloride Level 109H, Carbon Dioxide Level 25, Anion Gap 10, Blood Urea Nitrogen 12, Creatinine 1.4H, Estimat Glomerular Filtration Rate , Glucose Level 218H, Lactic Acid Level 3.40H, Calcium Level 8.0L, Phosphorus Level 2.9, Magnesium Level 1.8, Total Bilirubin 0.3, Aspartate Amino Transf (AST/SGOT) 22, Alanine Aminotransferase (ALT/SGPT) 22, Alkaline Phosphatase 88, Total Creatine Kinase 43, Creatine Kinase MB 0.6, Creatine Kinase MB Relative Index 1.3, Troponin I 0.000, Pro-B-Type Natriuretic Peptide 450H, Total Protein 7.2, Albumin 3.1L, Globulin 4.1, Albumin/Globulin Ratio 0.8L, Lipase 142 06/06/19 17:00: Urine Color Yellow, Urine Appearance Clear, Urine pH 5, Urine Specific [place] 1.020, Urine Protein Negative, Urine Glucose (UA) 2+H, Urine Ketones 1+H, Urine Blood Negative, Urine Nitrite Negative, Urine Bilirubin Negative, Urine Urobilinogen 1H, Urine Leukocyte Esterase Negative 06/06/19 17:55: Lactic Acid Level 2.80H 06/07/19 05:33: White Blood Count 13.0H, Red Blood Count 3.17L, Hemoglobin 9.7L, Hematocrit 29.0L, Mean Corpuscular Volume 92, Mean Corpuscular Hemoglobin 30.5, Mean Corpuscular Hemoglobin Concent 33.3, Red Cell Distribution Width 11.3L, Platelet Count 421, Mean Platelet Volume 5.7L, Neutrophils (%) (Auto) 64.9, Lymphocytes (%) (Auto) 22.4, Monocytes (%) (Auto) 8.0, Eosinophils (%) (Auto) 4.1H, Basophils (%) (Auto) 0.7, Sodium Level 146H, Potassium Level 3.9, Chloride Level 114H, Carbon Dioxide Level 24, Anion Gap 8, Blood Urea Nitrogen 8 , Creatinine 0.9, Estimat Glomerular Filtration Rate , Glucose Level 95#, Lactic Acid Level 1.00, Calcium Level 7.7L, Total Bilirubin 0.5, Aspartate Amino Transf (AST/SGOT) 19, Alanine Aminotransferase (ALT/SGPT) 21, Alkaline Phosphatase 84, Total Protein 6.6, Albumin 2.8L, Globulin 3.8, Albumin/Globulin Ratio 0.7L, Reticulocyte Count 2.4H, Iron Level 75, Total Iron Binding Capacity 224L, Percent Iron Saturation 33, Unsaturated Iron Binding 149, Ferritin 55, Lactate Dehydrogenase 176, Carcinoembryonic Antigen [Pending], Vitamin B12 Level 499, Thyroid Stimulating Hormone (TSH) 1.754 06/07/19 05:38: Troponin I 0.004 Current Medications Medications (Trade) Dose Ordered Sig/Maggie Route PRN Reason Start Time Stop Time Status Last Admin Dose Admin Acetaminophen (Tylenol) 500 mg Q4H PRN ORAL Mild Pain/Temp > 100.5 06/07/19 01:00 07/07/19 00:59 Albuterol/ Ipratropium (Albuterol/ Ipratropium) 3 ml Q6HRT PRN HHN Shortness of Breath 06/07/19 01:00 06/12/19 00:59 Calcium/Vitamin D (OsCal D) 1 tab DAILY ORAL 06/07/19 09:00 07/07/19 08:59 06/07/19 09:22 Ceftriaxone Sodium 1 gm/ Dextrose 55 ml @ 110 mls/hr Q24H IVPB 06/06/19 23:00 06/13/19 22:59 06/06/19 23:59 Clonidine HCl (Catapres Tab) 0.1 mg Q2H PRN ORAL For High Blood Pressure 06/07/19 10:30 07/07/19 10:29 Clopidogrel Bisulfate (Plavix) 75 mg DAILY ORAL 06/08/19 09:00 07/08/19 08:59 Dextrose (Dextrose 50%) 25 ml Q30M PRN IV Hypoglycemia 06/07/19 01:00 07/07/19 00:59 Dextrose (Dextrose 50%) 50 ml Q30M PRN IV Hypoglycemia 06/07/19 01:00 07/07/19 00:59 Enoxaparin Sodium (Lovenox) 100 mg QHS SUBQ 06/07/19 21:00 07/07/19 20:59 Insulin Aspart (NovoLOG) BEFORE MEALS AND HS SUBQ 06/07/19 06:30 07/07/19 06:29 Tramadol HCl (Ultram) 50 mg Q6H PRN ORAL For Pain 06/07/19 03:00 06/14/19 02:59 Finn Coyne MD Jun 07, 2019 11:56
[2019-06-07 12:00] VITALS: BP 139/62
--- NOTE | 2019-06-07 14:38 | Diagnostic Imaging Report ---
Indication: Cough Comparison: 07/25/2009 A single view chest radiograph was obtained. Findings: Reticular densities are demonstrated in the right upper lobe and perihilar region. Surgical clips demonstrated in the left hilum. The heart is borderline enlarged. There is no change compared to the prior study. Bones are osteopenic. IMPRESSION: No acute findings Evidence of previous thoracotomy. Scarring in the right perihilar/upper lobe
--- NOTE | 2019-06-07 14:58 | NUR ---
NURSE NOTES: Family member brought the medication bottles, given to pharmacy. Per patient, taking eye drops for glaucoma but does not remember the name of med, provided pharmacy number, [facility], tele : [phone], called pharmacy and clarified name of med. Paged Dr. Ashby for need of continuation of home med, no other than eye drops now. Per Pharmacy, eye drops, [place] is non hospital formulary. Per MD then hold for now. Order noted, entered, carried out.
--- NOTE | 2019-06-07 15:00 | NUR ---
NURSE NOTES: Patient would like RN to call Primary MD ,Dr. Teresa Campo, tele : [phone] for update. Called, nobody answer, left message.
--- NOTE | 2019-06-07 15:15 | Consultation ---
DATE OF CONSULTATION: 06/07/2019 ENDOCRINOLOGY CONSULTATION CONSULTING PHYSICIAN: John Mendoza M.D. REFERRING PHYSICIAN: Clemente Ashby M.D. REASON FOR CONSULTATION: Diabetes management. HISTORY OF PRESENT ILLNESS: The patient is a pleasant 83-year-old male with history of diabetes, hypertension, and hyperlipidemia who presented to the hospital with generalized weakness. The patient was feeling weak and confused. At the time of evaluation was noted to have glucose of 350. Lactic acid was elevated. Endocrinology was consulted. As an outpatient, the patient is taking metformin and Tradjenta. ALLERGIES TO MEDICATION: None. REVIEW OF SYSTEMS: As per history of present illness. MEDICATIONS: Reviewed and reconciled. LABORATORY VALUES: Sodium 142, potassium 4.4, chloride 109, bicarb 25, BUN 12, creatinine 1.4, glucose of 218. Lactic acid of 3.4. WBC of 16, hemoglobin 9.4, hematocrit 28, platelets of 325. Urine positive for glucose and ketones. PAST MEDICAL HISTORY: 1. Diabetes. 2. Hypertension. 3. Hyperlipidemia. PAST SURGICAL HISTORY: None. PHYSICAL EXAMINATION: GENERAL: The patient is lethargic. VITAL SIGNS: Blood pressure is 125/67, pulse 67, temperature 98, respiratory rate of 18. HEENT: Pupils reactive to light. Sclerae anicteric. NECK: No JVD. HEART: Regular. LUNGS: Clear. ABDOMEN: Positive bowel sounds. EXTREMITIES: No clubbing, cyanosis, edema. DIAGNOSES: 1. Leukocytosis. 2. Lactic acidosis. 3. Diabetes, out of control. PLAN: 1. Discontinue metformin in the context of elevated lactic acid. Continue NovoLog sliding scale before meals and at bedtime. Hold off on Tradjenta for now. It is not in formulary at [facility]. 2. I will follow the patient's glucose and adjustment will be done accordingly. Thank you, Dr. Ashby, for the courtesy of this consultation. John Mendoza M.D. DR: SHASHANK JOB#: [id number] CC: VAISHNAVI
--- NOTE | 2019-06-07 15:24 | Diagnostic Imaging Report ---
Indication: TIA TECHNIQUE: Duplex extracranial carotid and vertebral artery sonography performed with color flow imaging and waveform analysis. COMPARISON: None FINDINGS: Right carotid: Grayscale and color-flow imaging demonstrating no hemodynamically significant stenosis within the common carotid artery, extracranial internal carotid artery. Peak systolic and end-diastolic velocities are within normal limits. ICA/CCA ratios are within normal limits. Mild heterogeneous plaques are demonstrated consistent with atherosclerotic disease. Left carotid: Grayscale and color-flow imaging demonstrating no hemodynamically significant stenosis within the common carotid artery, extracranial internal carotid artery. Peak systolic and end-diastolic velocities are within normal limits. ICA/CCA ratios are within normal limits. Mild heterogeneous plaques are demonstrated consistent with atherosclerotic disease. Vertebral arteries: Antegrade flow demonstrated within both vertebral arteries. IMPRESSION: No hemodynamically significant extracranial carotid artery stenosis identified. Mild atherosclerotic disease noted. Based on sonographic criteria, ICA stenosis is less than 50%. Antegrade flow within both vertebral arteries. This report utilizes carotid stenosis grading criteria based on the meeting of Society of radiologists in ultrasound consensus conference, February 2002.
[2019-06-07 16:00] VITALS: BP 155/73
[2019-06-07] MEDS ORDERED: Varibar Pudding 230ml MC PRN (16:00)
[2019-06-07] MEDS ORDERED: Varibar Thin Liquid powder 148gm MC PRN (16:00)
[2019-06-07] MEDS ORDERED: Varibar Honey 250ml MC PRN (16:00)
[2019-06-07] MEDS ORDERED: Varibar Nectar 240ml MC PRN (16:00)
--- NOTE | 2019-06-07 16:09 | NUR ---
CASE MANAGEMENT:REVIEW 83 YR OLD MALE BIBA FROM HOME CC; GENERALIZED WEAKNESS SI: HYPOTENSION 97.8 60 19 99/43 98% ON RA WBC+16.3 IS: 2L NS BOLUS URINE CX CHEST XRAY BLOOD CX : TO TELEMETRY
--- NOTE | 2019-06-07 17:00 | Consultation ---
DATE OF CONSULTATION: 06/07/2019 CARDIOLOGY CONSULTATION CONSULTING PHYSICIAN: Umer Harley M.D. REFERRING PHYSICIAN: Clemente Ashby M.D. REASON FOR CONSULTATION: Generalized weakness and feeling like he may be having a stroke. HISTORY OF PRESENT ILLNESS: The patient is an 83-year-old gentleman with history of hypertension, diabetes, and history of CVA with left-sided weakness as well as history of peripheral vascular disease, who states that had peripheral intervention by [facility] in [facility]. The patient stated that he is supposed to have another stent in his right leg tomorrow by Dr. Dino Pillai. The patient presented to the emergency room with generalized weakness and dizziness and was found to be hypertensive by the paramedics. His blood glucose was also in the 260s. The patient felt very dizzy with unsteady gait. The patient was admitted and a Cardiology consultation was obtained for further evaluation and management. REVIEW OF SYSTEMS: Negative other than what is mentioned in the history of present illness. PAST MEDICAL HISTORY: As mentioned above. FAMILY HISTORY: Noncontributory. SOCIAL HISTORY: The patient lives at home. Does not smoke or drink alcohol. PHYSICAL EXAMINATION: VITAL SIGNS: Show blood pressure 142/70, pulse is 68, respirations 18, he is afebrile. HEAD AND NECK: Showed no JVD or carotid bruits. LUNGS: Clear. CARDIOVASCULAR: Regular S1 and S2 with no gallop or murmur. ABDOMEN: Soft. EXTREMITIES: No pitting edema. LABORATORY AND DIAGNOSTIC DATA: His EKG showed normal sinus rhythm, normal electrocardiogram. His labs show white count 13, hematocrit 9.7, hematocrit 29, and platelet count is 421. Sodium 142, potassium 3.9, BUN of 8, creatinine of 0.9, and glucose of 95. Initial lactate is 2.8. INR is 1. A CT of the brain showed no acute intracranial pathology. ASSESSMENT AND PLAN: 1. Lightheadedness, dizziness. We will get an echocardiogram. Check orthostatic vital signs. Check carotid duplex. His EKG is completely normal. 2. History of hypertension. Add p.r.n. clonidine to his medical regimen until evaluation is completed. 3. Diabetes, on insulin. 4. History of peripheral vascular disease, currently on Plavix. stent in the left lower extremity. We will try to get the records of the procedures from [facility] at [facility]. Get arterial and venous duplex of his lower extremity for further evaluation. 5. Lactic acidosis, possible sepsis. The patient is already on ceftriaxone and received vancomycin in the emergency room as well. 6. Questionable DVT. Lower extremity duplex is pending. The patient is on Lovenox. Further evaluation by Dr. Recio. Thank you very much for allowing me to participate in the care of this patient. Please do not hesitate to contact me for any questions regarding my evaluation. Umer Harley M.D. DR: SHAINA JOB#: [id number] CC:
--- NOTE | 2019-06-07 17:37 | NUR ---
NURSE NOTES: Dr. Recio made aware of result of venous duplex, per MD discontinue Lovenox , start Heparin SQ BID 5000unit
--- NOTE | 2019-06-07 19:33 | NUR ---
HAND-OFF: Report given to LANNY Avina.
--- NOTE | 2019-06-07 19:42 | NUR ---
NURSE NOTES: Received report from LANNY Tapia. Patient is awake lying semi-glynn's; resting comfortably. No signs of acute distress noted; denies pain at this time. AOx4; able to make needs known. Ambulates independently. Checked IV site; patent and flushed. No erythema, bleeding, or infiltration noted. Bed at lowest position, brakes on, siderails up x2. Call light within reach. Will continue to monitor.
[2019-06-07 20:00] VITALS: BP 131/61
[2019-06-07] MEDS ORDERED: Enoxaparin 100mg Inj SUBQ SCH (21:00)
--- NOTE | 2019-06-07 21:45 | Consultation ---
DATE OF CONSULTATION: 06/07/2019 INFECTIOUS DISEASES CONSULTATION CONSULTING PHYSICIAN: Nii Rodriguez M.D. PRIMARY ATTENDING PHYSICIAN: Clemente Ashby M.D. REASON FOR CONSULTATION: Leukocytosis. HISTORY OF PRESENT ILLNESS: This is an 83-year-old male admitted yesterday with weakness, dizziness. The patient states that he had a stroke in 1999 and he felt that he may have a stroke. He was hyperglycemic at the time of evaluation. At the time of admission, he had leukocytosis of 16.3. PAST MEDICAL HISTORY: Significant for CVA, had residual weakness in the left side of the body, but the patient can walk, had deep venous thrombosis one year ago, asthma, COPD, hypertension, diabetes mellitus type 2. ALLERGIES: No known drug allergies. MEDICATIONS: Getting Plavix, enoxaparin, clonidine, insulin, tramadol, albuterol ipratropium inhaler, ceftriaxone. SOCIAL HISTORY: Lives at home with daughter. He is a . He smokes one half pack cigarettes daily. Denies alcohol, drug abuse. REVIEW OF SYSTEMS: No fever. No chills. No nausea. No vomiting. No cough. No chest pain. No problem passing urine. PHYSICAL EXAMINATION: VITAL SIGNS: Temperature 97.7, pulse 70, blood pressure 142/70. GENERAL APPEARANCE: No acute distress, well developed. HEAD AND NECK: [place] conjunctiva. HEART: Normal rate. LUNGS: Clear. ABDOMEN: Soft and nontender. EXTREMITIES: No edema or finger clubbing. LABORATORY AND DIAGNOSTIC DATA: Sodium 146, potassium 3.9, chloride 114, bicarb 24, BUN 8, creatinine 0.9, glucose 95. WBC today is 13, hemoglobin 9.7, hematocrit 29, platelets 421. UA was negative. Urine culture so far no growth. Influenza A and B tests are negative. Chest x-ray was done, report is not available. IMPRESSION: 1. Leukocytosis. 2. COPD. 3. Asthma. 4. Diabetes mellitus type 2. 5. Dizziness. 6. Hypertension. 7. Anemia. 8. Nicotine dependence. RECOMMENDATION: We will follow up the chest x-ray. We will follow up the cultures. We will continue ceftriaxone. At the end of my exam, I thank Dr. Ashby for involving me in the care of this patient. Nii Rodriguez M.D. DR: Ct JOB#: [id number] CC: VAISHNAVI
[2019-06-07] MEDS: Heparin 5000 units/ml inj SUBQ SCH (21:49)
[2019-06-07] MEDS: cefTRIAXone 1 GM in D5W 55 ML IVPB SCH (23:28)
[2019-06-08] VITALS: BP 129/59
--- NOTE | 2019-06-08 02:30 | History and Physical Report ---
DATE OF ADMISSION: 06/06/2019 HISTORY OF PRESENT ILLNESS: The patient needs to be admitted for weakness and hypertension. The patient also complains of dizziness and presyncopal, called 911, also had blurred vision and has history of glaucoma. He has a remote history of CVA with left paresis. He has history of DVT as well. He was hypertensive on arrival, responded to IV fluids and also has leukocytosis and elevated creatinine. Admitted with a negative CT, admitted for those reasons. The patient denies nausea, vomiting, or diarrhea. Denies shortness of breath. Denies cough. Denies chills. Denies orthopnea. PAST MEDICAL HISTORY: Significant for CVA with left paresis, history of DVT, history of lung cancer, iron deficiency anemia, NIDDM, hyperlipidemia, PVD, , and BPH. PAST SURGICAL HISTORY: Eye surgery, history of partial lobectomy for lung cancer, and stent in the lower extremity. ALLERGIES: No known allergies. MEDICATIONS: Plavix, Avodart, ferrous sulfate, Tradjenta, metformin, Crestor, and tramadol. FAMILY HISTORY: Noncontributory. SOCIAL HISTORY: Denies history of drug and alcohol abuse. Does have history of smoking. REVIEW OF SYSTEMS: HEENT: Denies headaches. RESPIRATORY: Denies shortness of breath. Denies cough. CARDIOVASCULAR: Denies chest pain. Denies nausea, vomiting, or diarrhea. EXTREMITIES: Denies pain. CENTRAL NERVOUS SYSTEM: Does have blurred vision, presyncope, and dizziness for one day. PHYSICAL EXAMINATION: VITAL SIGNS: Temperature is 97.3, pulse is 68, blood pressure 140/70. HEENT: [place]ERR[place]. NECK: Supple. No lymphadenopathy. CHEST: Clear to auscultation. CARDIOVASCULAR: Regular rate and rhythm. No murmurs or extra sounds. GASTROINTESTINAL: Soft, nontender, nondistended. No organomegaly. EXTREMITIES: No edema. Moves all four extremities. Does have left-sided weakness, which is from previous stroke . Reflexes on both sides. LABORATORY DATA: WBC of 16.3, hemoglobin 9.4, and platelets 395,000. ASSESSMENT AND PLAN: Presyncope, leukocytosis, history of , history of DVT, hypertension, initially that responded to IV fluids, need to rule out sepsis, need to rule out UTI. I have asked Dr. Nii Rodriguez, Dr. Galen Recio, Dr. Coyne, Dr. Goodman, Dr. Harley, and Dr. Mendoza to see the patient to help with the management of the above-mentioned diagnoses and treatment that includes NIDDM, hypertension, rule out sepsis due to UTI as well as for DVT management. Clemente Ashby M.D. DR: KELSEA JOB#: [id number] CC:
[2019-06-08 04:00] VITALS: BP 159/75
--- NOTE | 2019-06-08 05:08 | NUR ---
NURSE NOTES: Patient is asleep lying semi-glynn's; resting comfortably. No signs of acute distress or pain noted at this time.
[2019-06-08] MEDS: NovoLOG Insulin Flexpen SUBQ SCH ×4 (06:17→20:55)
--- NOTE | 2019-06-08 06:31 | General Progress Note ---
Assessment/Plan Problem List: (1) Lactic acidosis ICD Codes: E87.2 - Acidosis SNOMED: 76455239 (2) Diabetes ICD Codes: E11.9 - Type 2 diabetes mellitus without complications SNOMED: 63564945 (3) Episode of generalized weakness ICD Codes: R53.1 - Weakness SNOMED: 40159252 (4) Generalized weakness ICD Codes: R53.1 - Weakness SNOMED: 61687087 Assessment/Plan: continue to hold off on Metformin and Tradjenta continue NISS ac / hs Subjective Allergies: Coded Allergies: No Known Allergies (Verified , 07/25/09) Subjective events noted glucose values are stable Item Value Date Time Bedside Blood Glucose 122 mg/dl H 06/08/19 0617 Bedside Blood Glucose 92 mg/dl 06/07/19 2149 Bedside Blood Glucose 110 mg/dl 06/07/19 1630 Bedside Blood Glucose 134 mg/dl H 06/07/19 1240 Bedside Blood Glucose 101 mg/dl 06/07/19 0615 Objective Last 24 Hour Vital Signs Date Time Temp Pulse Resp B/P (MAP) Pulse Ox O2 Delivery O2 Flow Rate FiO2 06/08/19 04:19 60 20 95 Room Air 21 06/08/19 04:00 95 06/08/19 04:00 97.7 80 18 159/75 (103) 95 06/08/19 00:00 98.0 70 16 129/59 (82) 96 06/08/19 00:00 70 06/07/19 21:00 Room Air 06/07/19 20:00 67 06/07/19 20:00 98.1 65 15 131/61 (84) 95 06/07/19 16:00 97.7 67 155/73 (100) 16 06/07/19 16:00 64 06/07/19 12:00 64 06/07/19 12:00 97.9 60 139/62 (87) 15 06/07/19 09:00 Room Air 06/07/19 08:01 70 20 96 Room Air 21 06/07/19 08:00 64 06/07/19 08:00 97.7 68 142/70 (94) Intake and Output 06/07/19 06/08/19 19:00 07:00 Intake Total 720 ml Output Total 300 ml Balance 420 ml Intake Oral 720 ml Output Urine Total 300 ml # Voids 1 # Bowel Movements 1 Laboratory Tests 06/07/19 16:10: Troponin I 0.000 06/07/19 22:30: Troponin I 0.000 Height (Feet): 5 Height (Inches): 5.00 Weight (Pounds): 151 General Appearance: no apparent distress Neck: normal alignment Cardiovascular: normal rate Respiratory/Chest: lungs clear Abdomen: normal bowel sounds Pelvis: normal external exam Objective Current Medications Medications (Trade) Dose Ordered Sig/Maggie Route PRN Reason Start Time Stop Time Status Last Admin Dose Admin Acetaminophen (Tylenol) 500 mg Q4H PRN ORAL Mild Pain/Temp > 100.5 06/07/19 01:00 07/07/19 00:59 Albuterol/ Ipratropium (Albuterol/ Ipratropium) 3 ml Q6HRT PRN HHN Shortness of Breath 06/07/19 01:00 06/12/19 00:59 Barium Sulfate (Varibar Honey) 250 ml NOW PRN MC RAD 06/07/19 16:00 06/10/19 15:59 Barium Sulfate (Varibar [place]) 240 ml NOW PRN MC RAD 06/07/19 16:00 06/10/19 15:59 Barium Sulfate (Varibar Pudding) 230 ml NOW PRN MC RAD 06/07/19 16:00 06/10/19 15:59 Barium Sulfate (Varibar Thin Liquid powder) 148 gm NOW PRN MC RAD 06/07/19 16:00 06/10/19 15:59 Brimonidine Tartrate (Alphagan) 1 drop BID BOTH EYES 06/08/19 09:00 07/08/19 08:59 Calcium/Vitamin D (OsCal D) 1 tab DAILY ORAL 06/07/19 09:00 07/07/19 08:59 06/07/19 09:22 Ceftriaxone Sodium 1 gm/ Dextrose 55 ml @ 110 mls/hr Q24H IVPB 06/06/19 23:00 06/13/19 22:59 06/07/19 23:28 Clonidine HCl (Catapres Tab) 0.1 mg Q2H PRN ORAL For High Blood Pressure 06/07/19 10:30 07/07/19 10:29 Clopidogrel Bisulfate (Plavix) 75 mg DAILY ORAL 06/08/19 09:00 07/08/19 08:59 Dextrose (Dextrose 50%) 25 ml Q30M PRN IV Hypoglycemia 06/07/19 01:00 07/07/19 00:59 Dextrose (Dextrose 50%) 50 ml Q30M PRN IV Hypoglycemia 06/07/19 01:00 07/07/19 00:59 Heparin Sodium (Porcine) (Heparin 5000 units/ml) 5,000 units EVERY 12 HOURS SUBQ 06/07/19 21:00 07/07/19 20:59 06/07/19 21:49 Insulin Aspart (NovoLOG) BEFORE MEALS AND HS SUBQ 06/07/19 06:30 07/07/19 06:29 06/08/19 06:17 Timolol Maleate (Timoptic 0.5% Op Soln) 1 drop TWICE A DAY BOTH EYES 06/08/19 09:00 07/08/19 08:59 Tramadol HCl (Ultram) 50 mg Q6H PRN ORAL For Pain 06/07/19 03:00 06/14/19 02:59 John Mendoza MD Jun 08, 2019 06:31
[2019-06-08 07:05] LABS: BASOPHILS % (AUTO) 1.2 % (0.0-2.0); EOSINOPHILS % (AUTO) 4.2 % (0.0-3.0); HEMATOCRIT 31.2 % (42.0-52.0); HEMOGLOBIN 10.6 G/DL (14.2-18.0); LYMPHOCYTES % (AUTO) 25.7 % (20.0-45.0); MEAN CORPUSCULAR VOLUME 91 FL (80-99); MONOCYTES % (AUTO) 7.5 % (1.0-10.0); NEUTROPHILS % (AUTO) 61.4 % (45.0-75.0); PLATELET COUNT 414 K/UL (150-450); RED BLOOD COUNT 3.42 M/UL (4.70-6.10); RED CELL DISTRIBUTION WIDTH 11.3 % (11.6-14.8); WHITE BLOOD COUNT 11.6 K/UL (4.8-10.8)
[2019-06-08 07:15] LABS: ALANINE AMINOTRANSFERASE 21 U/L (12-78); ALBUMIN 2.9 G/DL (3.4-5.0); ALBUMIN/GLOBULIN RATIO 0.7 (1.0-2.7); ALKALINE PHOSPHATASE 90 U/L (46-116); ANION GAP 11 mmol/L (5-15); ASPARTATE AMINO TRANSFERASE 19 U/L (15-37); BILIRUBIN,TOTAL 0.4 MG/DL (0.2-1.0); BLOOD UREA NITROGEN 6 mg/dL (7-18); CALCIUM 8.1 MG/DL (8.5-10.1); CARBON DIOXIDE 25 MMOL/L (21-32); CHLORIDE 107 MMOL/L (98-107); POTASSIUM 3.9 MMOL/L (3.5-5.1); SODIUM 143 MMOL/L (136-145)
--- NOTE | 2019-06-08 07:40 | NUR ---
HAND-OFF: Report given to LANNY Shah. Patient is awake lying high-glynn's eating breakfast. In stable condition.
[2019-06-08 08:00] VITALS: BP 133/84
[2019-06-08] MEDS: Calcium Carbonate 500mg w/Vit D 200iu tab ORAL SCH (08:42)
[2019-06-08] MEDS: Heparin 5000 units/ml inj SUBQ SCH ×2 (08:44→20:55)
[2019-06-08] MEDS: Timolol 0.5% Op Soln 2.5ml BOTH EYES SCH ×2 (08:52→17:31)
[2019-06-08] MEDS: Brimonidine 0.2% Opth Sol BOTH EYES SCH ×2 (08:52→17:30)
--- NOTE | 2019-06-08 09:46 | NUR ---
CASE MANAGEMENT:REVIEW 06/08/19 SI: LIGHTHEADEDNESS. HYPOTENSION 97.7 95 18 159/75 95% ON RA WBC+11.6 GLUCOSE+11.3 IS: IV ROCEPHIN Q24 PLAVIX PO QD HEPARIN SQ Q12 : TELEMETRY
--- NOTE | 2019-06-08 09:55 | Diagnostic Imaging Report ---
Indication: Leg pain, peripheral arterial disease, history of stent graft Technique: Base and duplex images of the bilateral lower extremity arteries Comparison: none Findings: On the right, biphasic waveforms are present at the common femoral artery level. Waveforms remain constant through the superficial femoral artery. There is a flow velocity elevation in the superficial femoral artery distally up to 193 cm/s. Below the knee, waveforms are slightly dampened, flow velocities are slightly decreased, the waveforms are monophasic. On the left, there is what appears to be an synthetic femoral-popliteal bypass graft. There appears to be occlusion of the [place] superficial femoral artery. The bypass graft is patent, without evidence of definite significant flow velocity elevation or focal stenosis. There is some flow velocity elevation at the occipital anastomosis, but color Doppler imaging does not demonstrate any significant stenosis Waveforms are biphasic biphasic waveforms with sharp systolic peaks are seen in the tibial vessels.. Impression: Evidence of stenosis, possibly significant, of the mid to distal right superficial femoral artery. Left femoral popliteal bypass graft is present, patent, without evidence of significant stenosis. No significant distal stenosis is seen on the left.
--- NOTE | 2019-06-08 10:06 | Cardiac Electrophysiology PN ---
Assessment/Plan Assessment/Plan 1. Lightheadedness, dizziness. Echocardiogram EF 60%. Carotid duplex no critical stenosis. His EKG is completely normal. 2. History of hypertension.On p.r.n. clonidine 3. Diabetes, on insulin. 4. History of peripheral vascular disease, currently on Plavix. S/P stent in the left lower extremity. We will try to get the records of the procedures from [facility]. Arterial duplex of his lower extremity result: Impression: Evidence of stenosis, possibly significant, of the mid to distal right superficial femoral artery. Left femoral popliteal bypass graft is present, patent, without evidence of significant stenosis. No significant distal stenosis is seen on the left. On Plavix and add Lipitor 5. Lactic acidosis, possible sepsis. The patient is already on ceftriaxone and received vancomycin in the emergency room as well. 6. Questionable DVT. Lower extremity duplex is pending. The patient is on Lovenox. Further evaluation by Dr. Recio. TIERRA RN Subjective Subjective Feeling better. No CP or SOB. Objective Last 24 Hour Vital Signs Date Time Temp Pulse Resp B/P (MAP) Pulse Ox O2 Delivery O2 Flow Rate FiO2 06/08/19 09:52 Room Air Room Air 06/08/19 08:00 98.2 71 20 133/84 (100) 99 06/08/19 04:19 60 20 95 Room Air 21 06/08/19 04:00 95 06/08/19 04:00 97.7 80 18 159/75 (103) 95 06/08/19 00:00 98.0 70 16 129/59 (82) 96 06/08/19 00:00 70 06/07/19 21:00 Room Air 06/07/19 20:00 67 06/07/19 20:00 98.1 65 15 131/61 (84) 95 06/07/19 16:00 97.7 67 155/73 (100) 16 06/07/19 16:00 64 06/07/19 12:00 64 06/07/19 12:00 97.9 60 139/62 (87) 15 Intake and Output 06/07/19 06/08/19 19:00 07:00 Intake Total 720 ml 295 ml Output Total 300 ml 700 ml Balance 420 ml -405 ml Intake Oral 720 ml 240 ml IV Total 55 ml Output Urine Total 300 ml 700 ml # Voids 1 # Bowel Movements 1 Laboratory Tests Test 06/07/19 16:10 06/07/19 22:30 06/08/19 04:50 Troponin I 0.000 ng/mL (0.000-0.056) 0.000 ng/mL (0.000-0.056) White Blood Count 11.6 K/UL (4.8-10.8) H Red Blood Count 3.42 M/UL (4.70-6.10) L Hemoglobin 10.6 G/DL (14.2-18.0) L Hematocrit 31.2 % (42.0-52.0) L Mean Corpuscular Volume 91 FL (80-99) Mean Corpuscular Hemoglobin 30.9 PG (27.0-31.0) Mean Corpuscular Hemoglobin Concent 33.9 G/DL (32.0-36.0) Red Cell Distribution Width 11.3 % (11.6-14.8) L Platelet Count 414 K/UL (150-450) Mean Platelet Volume 5.3 FL (6.5-10.1) L Neutrophils (%) (Auto) 61.4 % (45.0-75.0) Lymphocytes (%) (Auto) 25.7 % (20.0-45.0) Monocytes (%) (Auto) 7.5 % (1.0-10.0) Eosinophils (%) (Auto) 4.2 % (0.0-3.0) H Basophils (%) (Auto) 1.2 % (0.0-2.0) Sodium Level 143 MMOL/L (136-145) Potassium Level 3.9 MMOL/L (3.5-5.1) Chloride Level 107 MMOL/L (98-107) Carbon Dioxide Level 25 MMOL/L (21-32) Anion Gap 11 mmol/L (5-15) Blood Urea Nitrogen 6 mg/dL (7-18) L Creatinine 1.0 MG/DL (0.55-1.30) Estimat Glomerular Filtration Rate mL/min (>60) Glucose Level 113 MG/DL (74-106) H Calcium Level 8.1 MG/DL (8.5-10.1) L Total Bilirubin 0.4 MG/DL (0.2-1.0) Aspartate Amino Transf (AST/SGOT) 19 U/L (15-37) Alanine Aminotransferase (ALT/SGPT) 21 U/L (12-78) Alkaline Phosphatase 90 U/L (46-116) Total Protein 7.2 G/DL (6.4-8.2) Albumin 2.9 G/DL (3.4-5.0) L Globulin 4.3 g/dL Albumin/Globulin Ratio 0.7 (1.0-2.7) L Microbiology Date/Time Source Procedure Growth Status 06/06/19 16:08 Blood Blood Culture - Preliminary NO GROWTH AFTER 24 HOURS Resulted 06/06/19 15:55 Blood Blood Culture - Preliminary NO GROWTH AFTER 24 HOURS Resulted 06/06/19 16:20 Nasal Nares - Final Complete 06/06/19 16:20 Nasal Nares - Final Complete 06/06/19 17:00 Straight Cath Urine Culture - Preliminary NO GROWTH AFTER 24 HOURS Resulted Objective HEAD AND NECK: No JVD or carotid bruits. LUNGS: Clear. CARDIOVASCULAR: Regular S1 and S2 with no gallop or murmur. ABDOMEN: Soft. EXTREMITIES: No pitting edema. Umer Harley MD Jun 08, 2019 10:06
--- NOTE | 2019-06-08 11:21 | NUR ---
PATIENT REFUSED TO SIGN THE RELEASE OF INFORMATION FORM REQUESTED BY DR.TOLUIE Walker made aware.
--- NOTE | 2019-06-08 11:27 | General Progress Note ---
Assessment/Plan Problem List: (1) Episode of generalized weakness ICD Codes: R53.1 - Weakness SNOMED: 61084774 (2) Lactic acidosis ICD Codes: E87.2 - Acidosis SNOMED: 30775837 (3) Generalized weakness ICD Codes: R53.1 - Weakness SNOMED: 03333419 (4) Diabetes ICD Codes: E11.9 - Type 2 diabetes mellitus without complications SNOMED: 84940674 Status: progressing Assessment/Plan: uti will need abx cva w ambar paresis needs pt as well pvd .consulted dr ellis for arterial stenosis Subjective ROS Limited/Unobtainable: Yes Allergies: Coded Allergies: No Known Allergies (Verified , 07/25/09) Objective Last 24 Hour Vital Signs Date Time Temp Pulse Resp B/P (MAP) Pulse Ox O2 Delivery O2 Flow Rate FiO2 06/08/19 09:52 Room Air Room Air 06/08/19 08:00 84 06/08/19 08:00 98.2 71 20 133/84 (100) 99 06/08/19 04:19 60 20 95 Room Air 21 06/08/19 04:00 95 06/08/19 04:00 97.7 80 18 159/75 (103) 95 06/08/19 00:00 98.0 70 16 129/59 (82) 96 06/08/19 00:00 70 06/07/19 21:00 Room Air 06/07/19 20:00 67 06/07/19 20:00 98.1 65 15 131/61 (84) 95 06/07/19 16:00 97.7 67 155/73 (100) 16 06/07/19 16:00 64 06/07/19 12:00 64 06/07/19 12:00 97.9 60 139/62 (87) 15 Intake and Output 06/07/19 06/08/19 19:00 07:00 Intake Total 720 ml 295 ml Output Total 300 ml 700 ml Balance 420 ml -405 ml Intake Oral 720 ml 240 ml IV Total 55 ml Output Urine Total 300 ml 700 ml # Voids 1 # Bowel Movements 1 Laboratory Tests 06/07/19 16:10: Troponin I 0.000 06/07/19 22:30: Troponin I 0.000 06/08/19 04:50: White Blood Count 11.6H, Red Blood Count 3.42L, Hemoglobin 10.6L, Hematocrit 31.2L, Mean Corpuscular Volume 91, Mean Corpuscular Hemoglobin 30.9, Mean Corpuscular Hemoglobin Concent 33.9, Red Cell Distribution Width 11.3L, Platelet Count 414, Mean Platelet Volume 5.3L, Neutrophils (%) (Auto) 61.4, Lymphocytes (%) (Auto) 25.7, Monocytes (%) (Auto) 7.5, Eosinophils (%) (Auto) 4.2H, Basophils (%) (Auto) 1.2, Sodium Level 143, Potassium Level 3.9, Chloride Level 107, Carbon Dioxide Level 25, Anion Gap 11, Blood Urea Nitrogen 6L, Creatinine 1.0, Estimat Glomerular Filtration Rate , Glucose Level 113H, Calcium Level 8.1L, Total Bilirubin 0.4, Aspartate Amino Transf (AST/SGOT) 19, Alanine Aminotransferase (ALT/SGPT) 21, Alkaline Phosphatase 90, Total Protein 7.2, Albumin 2.9L, Globulin 4.3, Albumin/Globulin Ratio 0.7L Height (Feet): 5 Height (Inches): 5.00 Weight (Pounds): 151 Neck: supple Cardiovascular: normal rate Respiratory/Chest: lungs clear Clemente Ashby MD Jun 08, 2019 11:27
[2019-06-08 12:00] VITALS: BP 149/72
--- NOTE | 2019-06-08 12:50 | Infectious Diseases Prog Note ---
Assessment/Plan Assessment/Plan IMPRESSION: 1. Leukocytosis, improving 2. COPD. 3. Asthma. 4. Diabetes mellitus type 2. 5. Dizziness. 6. Hypertension. 7. Anemia. 8. Nicotine dependence. RECOMMENDATION: We will follow up the cultures. We will continue ceftriaxone. Subjective ROS Limited/Unobtainable: No Constitutional: Reports: no symptoms, other - feels better Respiratory: Reports: dry cough Cardiovascular: Reports: no symptoms Gastrointestinal/Abdominal: Reports: no symptoms Genitourinary: Reports: no symptoms Allergies: Coded Allergies: No Known Allergies (Verified , 07/25/09) Objective Vital Signs Last 24 Hour Vital Signs Date Time Temp Pulse Resp B/P (MAP) Pulse Ox O2 Delivery O2 Flow Rate FiO2 06/08/19 12:00 97.7 68 20 149/72 (97) 95 06/08/19 09:52 Room Air Room Air 06/08/19 08:00 84 06/08/19 08:00 98.2 71 20 133/84 (100) 99 06/08/19 04:19 60 20 95 Room Air 21 06/08/19 04:00 95 06/08/19 04:00 97.7 80 18 159/75 (103) 95 06/08/19 00:00 98.0 70 16 129/59 (82) 96 06/08/19 00:00 70 06/07/19 21:00 Room Air 06/07/19 20:00 67 06/07/19 20:00 98.1 65 15 131/61 (84) 95 06/07/19 16:00 97.7 67 155/73 (100) 16 06/07/19 16:00 64 Height (Feet): 5 Height (Inches): 5.00 Weight (Pounds): 151 General Appearance: no acute distress HEENT: mucous membranes moist Respiratory/Chest: lungs clear Cardiovascular: normal rate Abdomen: soft, non tender Extremities: no edema Neurologic/Psychiatric: alert, oriented x 3, responsive Microbiology Date/Time Source Procedure Growth Status 06/06/19 16:08 Blood Blood Culture - Preliminary NO GROWTH AFTER 24 HOURS Resulted 06/06/19 15:55 Blood Blood Culture - Preliminary NO GROWTH AFTER 24 HOURS Resulted 06/06/19 16:20 Nasal Nares - Final Complete 06/06/19 16:20 Nasal Nares - Final Complete 06/06/19 17:00 Straight Cath Urine Culture - Preliminary NO GROWTH AFTER 24 HOURS Resulted Laboratory Tests Test 06/07/19 16:10 06/07/19 22:30 06/08/19 04:50 Troponin I 0.000 ng/mL (0.000-0.056) 0.000 ng/mL (0.000-0.056) White Blood Count 11.6 K/UL (4.8-10.8) H Red Blood Count 3.42 M/UL (4.70-6.10) L Hemoglobin 10.6 G/DL (14.2-18.0) L Hematocrit 31.2 % (42.0-52.0) L Mean Corpuscular Volume 91 FL (80-99) Mean Corpuscular Hemoglobin 30.9 PG (27.0-31.0) Mean Corpuscular Hemoglobin Concent 33.9 G/DL (32.0-36.0) Red Cell Distribution Width 11.3 % (11.6-14.8) L Platelet Count 414 K/UL (150-450) Mean Platelet Volume 5.3 FL (6.5-10.1) L Neutrophils (%) (Auto) 61.4 % (45.0-75.0) Lymphocytes (%) (Auto) 25.7 % (20.0-45.0) Monocytes (%) (Auto) 7.5 % (1.0-10.0) Eosinophils (%) (Auto) 4.2 % (0.0-3.0) H Basophils (%) (Auto) 1.2 % (0.0-2.0) Sodium Level 143 MMOL/L (136-145) Potassium Level 3.9 MMOL/L (3.5-5.1) Chloride Level 107 MMOL/L (98-107) Carbon Dioxide Level 25 MMOL/L (21-32) Anion Gap 11 mmol/L (5-15) Blood Urea Nitrogen 6 mg/dL (7-18) L Creatinine 1.0 MG/DL (0.55-1.30) Estimat Glomerular Filtration Rate mL/min (>60) Glucose Level 113 MG/DL (74-106) H Calcium Level 8.1 MG/DL (8.5-10.1) L Total Bilirubin 0.4 MG/DL (0.2-1.0) Aspartate Amino Transf (AST/SGOT) 19 U/L (15-37) Alanine Aminotransferase (ALT/SGPT) 21 U/L (12-78) Alkaline Phosphatase 90 U/L (46-116) Total Protein 7.2 G/DL (6.4-8.2) Albumin 2.9 G/DL (3.4-5.0) L Globulin 4.3 g/dL Albumin/Globulin Ratio 0.7 (1.0-2.7) L Current Medications Medications (Trade) Dose Ordered Sig/Maggie Route PRN Reason Start Time Stop Time Status Last Admin Dose Admin Acetaminophen (Tylenol) 500 mg Q4H PRN ORAL Mild Pain/Temp > 100.5 06/07/19 01:00 07/07/19 00:59 Albuterol/ Ipratropium (Albuterol/ Ipratropium) 3 ml Q6HRT PRN HHN Shortness of Breath 06/07/19 01:00 06/12/19 00:59 Atorvastatin Calcium (Lipitor) 20 mg BEDTIME ORAL 06/08/19 21:00 07/08/19 20:59 Barium Sulfate (Varibar Honey) 250 ml NOW PRN MC RAD 06/07/19 16:00 06/10/19 15:59 Barium Sulfate (Varibar [place]) 240 ml NOW PRN MC RAD 06/07/19 16:00 06/10/19 15:59 Barium Sulfate (Varibar Pudding) 230 ml NOW PRN MC RAD 06/07/19 16:00 06/10/19 15:59 Barium Sulfate (Varibar Thin Liquid powder) 148 gm NOW PRN MC RAD 06/07/19 16:00 06/10/19 15:59 Brimonidine Tartrate (Alphagan) 1 drop BID BOTH EYES 06/08/19 09:00 07/08/19 08:59 06/08/19 08:52 Calcium/Vitamin D (OsCal D) 1 tab DAILY ORAL 06/07/19 09:00 07/07/19 08:59 06/08/19 08:42 Ceftriaxone Sodium 1 gm/ Dextrose 55 ml @ 110 mls/hr Q24H IVPB 06/06/19 23:00 06/13/19 22:59 06/07/19 23:28 Clonidine HCl (Catapres Tab) 0.1 mg Q2H PRN ORAL For High Blood Pressure 06/07/19 10:30 07/07/19 10:29 Clopidogrel Bisulfate (Plavix) 75 mg DAILY ORAL 06/08/19 09:00 07/08/19 08:59 06/08/19 08:42 Dextrose (Dextrose 50%) 25 ml Q30M PRN IV Hypoglycemia 06/07/19 01:00 07/07/19 00:59 Dextrose (Dextrose 50%) 50 ml Q30M PRN IV Hypoglycemia 06/07/19 01:00 07/07/19 00:59 Heparin Sodium (Porcine) (Heparin 5000 units/ml) 5,000 units EVERY 12 HOURS SUBQ 06/07/19 21:00 07/07/19 20:59 06/08/19 08:44 Insulin Aspart (NovoLOG) BEFORE MEALS AND HS SUBQ 06/07/19 06:30 07/07/19 06:29 06/08/19 12:12 Timolol Maleate (Timoptic 0.5% Op Soln) 1 drop TWICE A DAY BOTH EYES 06/08/19 09:00 07/08/19 08:59 06/08/19 08:52 Tramadol HCl (Ultram) 50 mg Q6H PRN ORAL For Pain 06/07/19 03:00 06/14/19 02:59 Nii Rodriguez MD Jun 08, 2019 12:50
[2019-06-08 16:00] VITALS: BP 140/61
--- NOTE | 2019-06-08 16:19 | Hematology/Onc Progress Note ---
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 --> only hep sq needed # Anemia of iron deficiency as noted in the past --> on ferrous sulfate po --> no hemolysis is noted --> meds reviewed --> have ordered for anemia panel # Dizziness, confusion, weakness, found to be hypotensive and confused on exam --> continue on fluids # Dizziness concerning r/o cva --> CT of the brain is negative, no bleeding noted # Hypotensive but after fluid bolus patient BP improved and continued to stay stable. --> on fluids, to continue # DM2 -- accuchecks qac and qhs --> a1c goal <8 DW Rn and appreciate consultation Subjective Allergies: Coded Allergies: No Known Allergies (Verified , 07/25/09) Subjective 06/08: no acute events, us venous duplex reviewed, dc lovenox, started on heparin Objective Objective Current Medications Medications (Trade) Dose Ordered Sig/Maggie Route PRN Reason Start Time Stop Time Status Last Admin Dose Admin Acetaminophen (Tylenol) 500 mg Q4H PRN ORAL Mild Pain/Temp > 100.5 06/07/19 01:00 07/07/19 00:59 Albuterol/ Ipratropium (Albuterol/ Ipratropium) 3 ml Q6HRT PRN HHN Shortness of Breath 06/07/19 01:00 06/12/19 00:59 Atorvastatin Calcium (Lipitor) 20 mg BEDTIME ORAL 06/08/19 21:00 07/08/19 20:59 Barium Sulfate (Varibar Honey) 250 ml NOW PRN MC RAD 06/07/19 16:00 06/10/19 15:59 Barium Sulfate (Varibar [place]) 240 ml NOW PRN MC RAD 06/07/19 16:00 06/10/19 15:59 Barium Sulfate (Varibar Pudding) 230 ml NOW PRN MC RAD 06/07/19 16:00 06/10/19 15:59 Barium Sulfate (Varibar Thin Liquid powder) 148 gm NOW PRN MC RAD 06/07/19 16:00 06/10/19 15:59 Brimonidine Tartrate (Alphagan) 1 drop BID BOTH EYES 06/08/19 09:00 07/08/19 08:59 06/08/19 08:52 Calcium/Vitamin D (OsCal D) 1 tab DAILY ORAL 06/07/19 09:00 07/07/19 08:59 06/08/19 08:42 Ceftriaxone Sodium 1 gm/ Dextrose 55 ml @ 110 mls/hr Q24H IVPB 06/06/19 23:00 06/13/19 22:59 06/07/19 23:28 Clonidine HCl (Catapres Tab) 0.1 mg Q2H PRN ORAL For High Blood Pressure 06/07/19 10:30 07/07/19 10:29 Clopidogrel Bisulfate (Plavix) 75 mg DAILY ORAL 06/08/19 09:00 07/08/19 08:59 06/08/19 08:42 Dextrose (Dextrose 50%) 25 ml Q30M PRN IV Hypoglycemia 06/07/19 01:00 07/07/19 00:59 Dextrose (Dextrose 50%) 50 ml Q30M PRN IV Hypoglycemia 06/07/19 01:00 07/07/19 00:59 Heparin Sodium (Porcine) (Heparin 5000 units/ml) 5,000 units EVERY 12 HOURS SUBQ 06/07/19 21:00 07/07/19 20:59 06/08/19 08:44 Insulin Aspart (NovoLOG) BEFORE MEALS AND HS SUBQ 06/07/19 06:30 07/07/19 06:29 06/08/19 12:12 Timolol Maleate (Timoptic 0.5% Op Soln) 1 drop TWICE A DAY BOTH EYES 06/08/19 09:00 07/08/19 08:59 06/08/19 08:52 Tramadol HCl (Ultram) 50 mg Q6H PRN ORAL For Pain 06/07/19 03:00 06/14/19 02:59 Last 24 Hour Vital Signs Date Time Temp Pulse Resp B/P (MAP) Pulse Ox O2 Delivery O2 Flow Rate FiO2 06/08/19 12:00 70 06/08/19 12:00 97.7 68 20 149/72 (97) 95 06/08/19 09:52 Room Air Room Air 1/9/20 08:00 84 06/08/19 08:00 98.2 71 20 133/84 (100) 99 06/08/19 04:19 60 20 95 Room Air 21 06/08/19 04:00 95 06/08/19 04:00 97.7 80 18 159/75 (103) 95 06/08/19 00:00 98.0 70 16 129/59 (82) 96 06/08/19 00:00 70 06/07/19 21:00 Room Air 06/07/19 20:00 67 06/07/19 20:00 98.1 65 15 131/61 (84) 95 06/07/19 16:00 97.7 67 155/73 (100) 16 06/07/19 16:00 64 06/07/19 12:00 64 06/07/19 12:00 97.9 60 139/62 (87) 15 06/07/19 09:00 Room Air 06/07/19 08:01 70 20 96 Room Air 21 06/07/19 08:00 64 06/07/19 08:00 97.7 68 142/70 (94) 06/07/19 04:00 97.3 65 125/67 (86) 06/07/19 03:26 60 06/07/19 00:38 97.5 65 125/59 (81) 06/06/19 23:36 66 06/06/19 22:48 Room Air 06/06/19 21:22 61 06/06/19 20:40 97.3 70 15 147/66 97 Room Air 06/06/19 19:15 97.8 82 21 153/63 97 Room Air 06/06/19 16:55 97.8 71 16 102/55 100 Room Air 06/06/19 16:13 60 19 Room Air Intake and Output 06/07/19 06/08/19 19:00 07:00 Intake Total 720 ml 295 ml Output Total 300 ml 700 ml Balance 420 ml -405 ml Intake Oral 720 ml 240 ml IV Total 55 ml Output Urine Total 300 ml 700 ml # Voids 1 # Bowel Movements 1 Labs Test 06/06/19 16:00 06/06/19 17:00 06/06/19 17:55 06/07/19 05:33 White Blood Count 16.3 K/UL (4.8-10.8) 13.0 K/UL (4.8-10.8) Red Blood Count 3.11 M/UL (4.70-6.10) 3.17 M/UL (4.70-6.10) Hemoglobin 9.4 G/DL (14.2-18.0) 9.7 G/DL (14.2-18.0) Hematocrit 28.1 % (42.0-52.0) 29.0 % (42.0-52.0) Mean Corpuscular Volume 90 FL (80-99) 92 FL (80-99) Mean Corpuscular Hemoglobin 30.3 PG (27.0-31.0) 30.5 PG (27.0-31.0) Mean Corpuscular Hemoglobin Concent 33.5 G/DL (32.0-36.0) 33.3 G/DL (32.0-36.0) Red Cell Distribution Width 10.1 % (11.6-14.8) 11.3 % (11.6-14.8) Platelet Count 395 K/UL (150-450) 421 K/UL (150-450) Mean Platelet Volume 5.8 FL (6.5-10.1) 5.7 FL (6.5-10.1) Neutrophils (%) (Auto) 72.3 % (45.0-75.0) 64.9 % (45.0-75.0) Lymphocytes (%) (Auto) 16.7 % (20.0-45.0) 22.4 % (20.0-45.0) Monocytes (%) (Auto) 7.1 % (1.0-10.0) 8.0 % (1.0-10.0) Eosinophils (%) (Auto) 3.0 % (0.0-3.0) 4.1 % (0.0-3.0) Basophils (%) (Auto) 0.9 % (0.0-2.0) 0.7 % (0.0-2.0) Sodium Level 143 MMOL/L (136-145) 146 MMOL/L (136-145) Potassium Level 4.4 MMOL/L (3.5-5.1) 3.9 MMOL/L (3.5-5.1) Chloride Level 109 MMOL/L (98-107) 114 MMOL/L (98-107) Carbon Dioxide Level 25 MMOL/L (21-32) 24 MMOL/L (21-32) Anion Gap 10 mmol/L (5-15) 8 mmol/L (5-15) Blood Urea Nitrogen 12 mg/dL (7-18) 8 mg/dL (7-18) Creatinine 1.4 MG/DL (0.55-1.30) 0.9 MG/DL (0.55-1.30) Estimat Glomerular Filtration Rate mL/min (>60) mL/min (>60) Glucose Level 218 MG/DL (74-106) 95 MG/DL (74-106) Lactic Acid Level 3.40 mmol/L (0.4-2.0) 2.80 mmol/L (0.66-2.22) 1.00 mmol/L (0.4-2.0) Calcium Level 8.0 MG/DL (8.5-10.1) 7.7 MG/DL (8.5-10.1) Phosphorus Level 2.9 MG/DL (2.5-4.9) Magnesium Level 1.8 MG/DL (1.8-2.4) Total Bilirubin 0.3 MG/DL (0.2-1.0) 0.5 MG/DL (0.2-1.0) Aspartate Amino Transf (AST/SGOT) 22 U/L (15-37) 19 U/L (15-37) Alanine Aminotransferase (ALT/SGPT) 22 U/L (12-78) 21 U/L (12-78) Alkaline Phosphatase 88 U/L (46-116) 84 U/L (46-116) Total Creatine Kinase 43 U/L (26-308) Creatine Kinase MB 0.6 NG/ML (0.0-3.6) Creatine Kinase MB Relative Index 1.3 Troponin I 0.000 ng/mL (0.000-0.056) Pro-B-Type Natriuretic Peptide 450 pg/mL (0-125) Total Protein 7.2 G/DL (6.4-8.2) 6.6 G/DL (6.4-8.2) Albumin 3.1 G/DL (3.4-5.0) 2.8 G/DL (3.4-5.0) Globulin 4.1 g/dL 3.8 g/dL Albumin/Globulin Ratio 0.8 (1.0-2.7) 0.7 (1.0-2.7) Lipase 142 U/L (73-393) Urine Color Yellow Urine Appearance Clear Urine pH 5 (4.5-8.0) Urine Specific [place] 1.020 (1.005-1.035) Urine Protein Negative (NEGATIVE) Urine Glucose (UA) 2+ (NEGATIVE) Urine Ketones 1+ (NEGATIVE) Urine Blood Negative (NEGATIVE) Urine Nitrite Negative (NEGATIVE) Urine Bilirubin Negative (NEGATIVE) Urine Urobilinogen 1 MG/DL (0.0-1.0) Urine Leukocyte Esterase Negative (NEGATIVE) Reticulocyte Count 2.4 % (0.5-2.0) Iron Level 75 ug/dL (50-175) Total Iron Binding Capacity 224 ug/dL (250-450) Percent Iron Saturation 33 % (15-50) Unsaturated Iron Binding 149 ug/dL (112-346) Ferritin 55 NG/ML (8-388) Lactate Dehydrogenase 176 U/L (81-234) Carcinoembryonic Antigen 2.1 ng/mL (0.0-4.7) Vitamin B12 Level 499 PG/ML (193-986) Thyroid Stimulating Hormone (TSH) 1.754 uiU/mL (0.358-3.740) Test 06/07/19 05:38 06/07/19 16:10 06/07/19 22:30 06/08/19 04:50 Troponin I 0.004 ng/mL (0.000-0.056) 0.000 ng/mL (0.000-0.056) 0.000 ng/mL (0.000-0.056) White Blood Count 11.6 K/UL (4.8-10.8) Red Blood Count 3.42 M/UL (4.70-6.10) Hemoglobin 10.6 G/DL (14.2-18.0) Hematocrit 31.2 % (42.0-52.0) Mean Corpuscular Volume 91 FL (80-99) Mean Corpuscular Hemoglobin 30.9 PG (27.0-31.0) Mean Corpuscular Hemoglobin Concent 33.9 G/DL (32.0-36.0) Red Cell Distribution Width 11.3 % (11.6-14.8) Platelet Count 414 K/UL (150-450) Mean Platelet Volume 5.3 FL (6.5-10.1) Neutrophils (%) (Auto) 61.4 % (45.0-75.0) Lymphocytes (%) (Auto) 25.7 % (20.0-45.0) Monocytes (%) (Auto) 7.5 % (1.0-10.0) Eosinophils (%) (Auto) 4.2 % (0.0-3.0) Basophils (%) (Auto) 1.2 % (0.0-2.0) Sodium Level 143 MMOL/L (136-145) Potassium Level 3.9 MMOL/L (3.5-5.1) Chloride Level 107 MMOL/L (98-107) Carbon Dioxide Level 25 MMOL/L (21-32) Anion Gap 11 mmol/L (5-15) Blood Urea Nitrogen 6 mg/dL (7-18) Creatinine 1.0 MG/DL (0.55-1.30) Estimat Glomerular Filtration Rate mL/min (>60) Glucose Level 113 MG/DL (74-106) Calcium Level 8.1 MG/DL (8.5-10.1) Total Bilirubin 0.4 MG/DL (0.2-1.0) Aspartate Amino Transf (AST/SGOT) 19 U/L (15-37) Alanine Aminotransferase (ALT/SGPT) 21 U/L (12-78) Alkaline Phosphatase 90 U/L (46-116) Total Protein 7.2 G/DL (6.4-8.2) Albumin 2.9 G/DL (3.4-5.0) Globulin 4.3 g/dL Albumin/Globulin Ratio 0.7 (1.0-2.7) Height (Feet): 5 Height (Inches): 5.00 Weight (Pounds): 151 Objective Physical Exam Vital Signs: reviewed Gen: well appearing, no apparent distress, nt HEENT: normocephalic, atraumatic, bilateral eye normal inspection ENT: hearing grossly normal, EOM grossly intact, moist mucus membrane PulM: lungs clear, normal breath sounds CV: regular rate, rhythm, no mgr Neuro: non-focal Galen Recio MD Jun 08, 2019 16:19
--- NOTE | 2019-06-08 19:45 | NUR ---
HAND-OFF: Report given to GAVIN CA.
[2019-06-08 20:00] VITALS: BP 132/59
[2019-06-08] MEDS ORDERED: Atorvastatin 20mg tab ORAL SCH (21:00)
--- NOTE | 2019-06-08 21:11 | Pulmonology Progress Note ---
Assessment/Plan Assessment/Plan Pulmonary Progress Note HPI Patient is a 83-year-old male admitted with with weakness and dizziness, Past history of DM, HTN, Asthma, CVA and DVT. he takes anticoagulation. he denies chest pain or SOB. Less weak today LE Dupplex negative for DVT Allergies: Coded Allergies: No Known Allergies (Verified , 07/25/09) Past Medical History: DM, HTN, Asthma, CVA and DVT All Other Systems: limited - mental status change Physical Exam Vital Signs Noted General Appearance: well appearing, no apparent distress, non-toxic Head: normocephalic, atraumatic Eyes: bilateral eye normal inspection ENT: hearing grossly normal, EOM grossly intact, moist mucus membranes Neck: supple Respiratory: lungs clear, normal breath sounds, no respiratory distress, speaking full sentences Cardiovascular: regular rate, rhythm, HS1, HS2 normal,normal capillary refill Gastrointestinal: soft, non-distended Musculoskeletal: moves extm spontaneously, no lower extremity edema Neurologic: alert, motor strength/tone normal, pantry attendant III-XII nml as tested, oriented - Person, distal neuro normal, sensory intact, other - confused Skin: warm/dry, normal turgor Impression: Possible Sepsis Hypertension Diabetes Asthma 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 Previous DVT on Lovenox Plan: CXR IV AB per ID HHN AC per Hematology - [facility]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 PPX O2 PRN Laboratory Tests Test 06/06/19 16:00 06/06/19 17:00 06/06/19 17:55 White Blood Count 16.3 K/UL (4.8-10.8) H Red Blood Count 3.11 M/UL (4.70-6.10) L Hemoglobin 9.4 G/DL (14.2-18.0) L Hematocrit 28.1 % (42.0-52.0) L Mean Corpuscular Volume 90 FL (80-99) Mean Corpuscular Hemoglobin 30.3 PG (27.0-31.0) Mean Corpuscular Hemoglobin Concent 33.5 G/DL (32.0-36.0) Red Cell Distribution Width 10.1 % (11.6-14.8) L Platelet Count 395 K/UL (150-450) Mean Platelet Volume 5.8 FL (6.5-10.1) L Neutrophils (%) (Auto) 72.3 % (45.0-75.0) Lymphocytes (%) (Auto) 16.7 % (20.0-45.0) L Monocytes (%) (Auto) 7.1 % (1.0-10.0) Eosinophils (%) (Auto) 3.0 % (0.0-3.0) Basophils (%) (Auto) 0.9 % (0.0-2.0) Sodium Level 143 MMOL/L (136-145) Potassium Level 4.4 MMOL/L (3.5-5.1) Chloride Level 109 MMOL/L (98-107) H Carbon Dioxide Level 25 MMOL/L (21-32) Anion Gap 10 mmol/L (5-15) Blood Urea Nitrogen 12 mg/dL (7-18) Creatinine 1.4 MG/DL (0.55-1.30) H Estimate Glomerular Filtration Rate mL/min (>60) Glucose Level 218 MG/DL (74-106) H Lactic Acid Level 3.40 mmol/L (0.4-2.0) H 2.80 mmol/L (0.66-2.22) H Calcium Level 8.0 MG/DL (8.5-10.1) L Phosphorus Level 2.9 MG/DL (2.5-4.9) Magnesium Level 1.8 MG/DL (1.8-2.4) Total Bilirubin 0.3 MG/DL (0.2-1.0) Aspartate Amino Transferase (AST) 22 U/L (15-37) Alanine Aminotransferase (ALT) 22 U/L (12-78) Alkaline Phosphatase 88 U/L (46-116) Total Creatine Kinase 43 U/L (26-308) Creatine Kinase MB 0.6 NG/ML (0.0-3.6) Creatine Kinase MB Relative Index 1.3 Troponin I 0.000 ng/mL (0.000-0.056) Pro-B-Type Natriuretic Peptide 450 pg/mL (0-125) H Total Protein 7.2 G/DL (6.4-8.2) Albumin 3.1 G/DL (3.4-5.0) L Globulin 4.1 g/dL Albumin/Globulin Ratio 0.8 (1.0-2.7) L Lipase 142 U/L (73-393) Urine Color Yellow Urine Appearance Clear Urine pH 5 (4.5-8.0) Urine Specific [place] 1.020 (1.005-1.035) Urine Protein Negative (NEGATIVE) Urine Glucose (UA) 2+ (NEGATIVE) H Urine Ketones 1+ (NEGATIVE) H Urine Blood Negative (NEGATIVE) Urine Nitrite Negative (NEGATIVE) Urine Bilirubin Negative (NEGATIVE) Urine Urobilinogen 1 MG/DL (0.0-1.0) H Urine Leukocyte Esterase Negative (NEGATIVE) Microbiology Date/Time Source Procedure Growth Status 06/06/19 16:20 Nasal Nares - Final Complete 06/06/19 16:20 Nasal Nares - Final Complete Procedure Result INFLUENZA A ANTIGEN Final INFLUENZAE A RESULT NEGATIVE REF RANGE: NEGATIVE INFLUENZA B ANTIGEN Final INFLUENZAE B RESULT NEGATIVE REF RANGE: NEGATIVE EKG Time: Rate of 61 Rate: normal Rhythm: NSR ST Segments: no acute changes CT HEAD Without Contrast: Comparison head CT 07/25/2009. Cerebral volume loss. No hemorrhage. Foci of encephalomalacia right frontal, parietal and occipital lobes. There is some gas in the veins in the process laboratory specialist spaces and right parotid space, presumably iatrogenic. Impression: No acute intracranial pathology. Subjective ROS Limited/Unobtainable: No Allergies: Coded Allergies: No Known Allergies (Verified , 07/25/09) Objective Last 24 Hour Vital Signs Date Time Temp Pulse Resp B/P (MAP) Pulse Ox O2 Delivery O2 Flow Rate FiO2 06/08/19 16:00 97.9 66 20 140/61 (87) 99 06/08/19 16:00 80 06/08/19 12:00 70 06/08/19 12:00 97.7 68 20 149/72 (97) 95 06/08/19 09:52 Room Air Room Air 06/08/19 08:00 84 06/08/19 08:00 98.2 71 20 133/84 (100) 99 06/08/19 04:19 60 20 95 Room Air 21 06/08/19 04:00 95 06/08/19 04:00 97.7 80 18 159/75 (103) 95 06/08/19 00:00 98.0 70 16 129/59 (82) 96 06/08/19 00:00 70 Intake and Output 06/07/19 06/08/19 19:00 07:00 Intake Total 720 ml 295 ml Output Total 300 ml 700 ml Balance 420 ml -405 ml Intake Oral 720 ml 240 ml IV Total 55 ml Output Urine Total 300 ml 700 ml # Voids 1 # Bowel Movements 1 Microbiology Date/Time Source Procedure Growth Status 06/06/19 16:08 Blood Blood Culture - Preliminary NO GROWTH AFTER 24 HOURS Resulted 06/06/19 15:55 Blood Blood Culture - Preliminary NO GROWTH AFTER 24 HOURS Resulted 06/06/19 16:20 Nasal Nares - Final Complete 06/06/19 16:20 Nasal Nares - Final Complete 06/06/19 17:00 Straight Cath Urine Culture - Preliminary NO GROWTH AFTER 24 HOURS Resulted Laboratory Tests 06/07/19 22:30: Troponin I 0.000 06/08/19 04:50: White Blood Count 11.6H, Red Blood Count 3.42L, Hemoglobin 10.6L, Hematocrit 31.2L, Mean Corpuscular Volume 91, Mean Corpuscular Hemoglobin 30.9, Mean Corpuscular Hemoglobin Concent 33.9, Red Cell Distribution Width 11.3L, Platelet Count 414, Mean Platelet Volume 5.3L, Neutrophils (%) (Auto) 61.4, Lymphocytes (%) (Auto) 25.7, Monocytes (%) (Auto) 7.5, Eosinophils (%) (Auto) 4.2H, Basophils (%) (Auto) 1.2, Sodium Level 143, Potassium Level 3.9, Chloride Level 107, Carbon Dioxide Level 25, Anion Gap 11, Blood Urea Nitrogen 6L, Creatinine 1.0, Estimat Glomerular Filtration Rate , Glucose Level 113H, Calcium Level 8.1L, Total Bilirubin 0.4, Aspartate Amino Transf (AST/SGOT) 19, Alanine Aminotransferase (ALT/SGPT) 21, Alkaline Phosphatase 90, Total Protein 7.2, Albumin 2.9L, Globulin 4.3, Albumin/Globulin Ratio 0.7L Current Medications Medications (Trade) Dose Ordered Sig/Maggie Route PRN Reason Start Time Stop Time Status Last Admin Dose Admin Acetaminophen (Tylenol) 500 mg Q4H PRN ORAL Mild Pain/Temp > 100.5 06/07/19 01:00 07/07/19 00:59 Albuterol/ Ipratropium (Albuterol/ Ipratropium) 3 ml Q6HRT PRN HHN Shortness of Breath 06/07/19 01:00 06/12/19 00:59 Atorvastatin Calcium (Lipitor) 20 mg BEDTIME ORAL 06/08/19 21:00 07/08/19 20:59 06/08/19 20:54 Barium Sulfate (Varibar Honey) 250 ml NOW PRN MC RAD 06/07/19 16:00 06/10/19 15:59 Barium Sulfate (Varibar [place]) 240 ml NOW PRN MC RAD 06/07/19 16:00 06/10/19 15:59 Barium Sulfate (Varibar Pudding) 230 ml NOW PRN MC RAD 06/07/19 16:00 06/10/19 15:59 Barium Sulfate (Varibar Thin Liquid powder) 148 gm NOW PRN MC RAD 06/07/19 16:00 06/10/19 15:59 Brimonidine Tartrate (Alphagan) 1 drop BID BOTH EYES 06/08/19 09:00 07/08/19 08:59 06/08/19 17:30 Calcium/Vitamin D (OsCal D) 1 tab DAILY ORAL 06/07/19 09:00 07/07/19 08:59 06/08/19 08:42 Ceftriaxone Sodium 1 gm/ Dextrose 55 ml @ 110 mls/hr Q24H IVPB 06/06/19 23:00 06/13/19 22:59 06/07/19 23:28 Clonidine HCl (Catapres Tab) 0.1 mg Q2H PRN ORAL For High Blood Pressure 06/07/19 10:30 07/07/19 10:29 Clopidogrel Bisulfate (Plavix) 75 mg DAILY ORAL 06/08/19 09:00 07/08/19 08:59 06/08/19 08:42 Dextrose (Dextrose 50%) 25 ml Q30M PRN IV Hypoglycemia 06/07/19 01:00 07/07/19 00:59 Dextrose (Dextrose 50%) 50 ml Q30M PRN IV Hypoglycemia 06/07/19 01:00 07/07/19 00:59 Heparin Sodium (Porcine) (Heparin 5000 units/ml) 5,000 units EVERY 12 HOURS SUBQ 06/07/19 21:00 07/07/19 20:59 06/08/19 20:55 Insulin Aspart (NovoLOG) BEFORE MEALS AND HS SUBQ 06/07/19 06:30 07/07/19 06:29 06/08/19 20:55 Timolol Maleate (Timoptic 0.5% Op Soln) 1 drop TWICE A DAY BOTH EYES 06/08/19 09:00 07/08/19 08:59 06/08/19 17:31 Tramadol HCl (Ultram) 50 mg Q6H PRN ORAL For Pain 06/07/19 03:00 06/14/19 02:59 Finn Coyne MD Jun 08, 2019 21:11
--- NOTE | 2019-06-08 23:42 | General Progress Note ---
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
[2019-06-08] MEDS: cefTRIAXone 1 GM in D5W 55 ML IVPB SCH (23:44)
[2019-06-09] VITALS: BP 128/59
--- NOTE | 2019-06-09 03:56 | NUR ---
NURSE NOTES: Patient is asleep lying semi-glynn's; resting comfortably. No signs of acute distress or pain noted at this time.
[2019-06-09 04:00] VITALS: BP 145/57
--- NOTE | 2019-06-09 05:59 | General Progress Note ---
Assessment/Plan Problem List: (1) Lactic acidosis ICD Codes: E87.2 - Acidosis SNOMED: 39095713 (2) Diabetes ICD Codes: E11.9 - Type 2 diabetes mellitus without complications SNOMED: 53076207 (3) Episode of generalized weakness ICD Codes: R53.1 - Weakness SNOMED: 10860410 (4) Generalized weakness ICD Codes: R53.1 - Weakness SNOMED: 67855413 Status: progressing Assessment/Plan: continue to hold off on Metformin start Januvia 100 mg daily continue NISS ac / hs Subjective Allergies: Coded Allergies: No Known Allergies (Verified , 07/25/09) Subjective events noted glucose values are stable Item Value Date Time Bedside Blood Glucose 129 mg/dl H 06/08/19 2100 Bedside Blood Glucose 127 mg/dl H 06/08/19 1630 Bedside Blood Glucose 145 mg/dl H 06/08/19 1212 Objective Last 24 Hour Vital Signs Date Time Temp Pulse Resp B/P (MAP) Pulse Ox O2 Delivery O2 Flow Rate FiO2 06/09/19 04:00 81 06/09/19 04:00 98.0 81 20 145/57 (86) 95 06/09/19 00:00 97.4 67 20 128/59 (82) 97 06/09/19 00:00 61 06/08/19 21:00 Room Air 06/08/19 20:00 98.1 78 20 132/59 (83) 99 06/08/19 20:00 64 06/08/19 16:00 97.9 66 20 140/61 (87) 99 06/08/19 16:00 80 06/08/19 12:00 70 06/08/19 12:00 97.7 68 20 149/72 (97) 95 06/08/19 09:52 Room Air Room Air 06/08/19 08:00 84 06/08/19 08:00 98.2 71 20 133/84 (100) 99 Intake and Output 06/08/19 06/09/19 19:00 07:00 Output Total 400 ml Balance -400 ml Output Urine Total 400 ml # Voids 1 Height (Feet): 5 Height (Inches): 5.00 Weight (Pounds): 151 General Appearance: no apparent distress Neck: normal alignment Cardiovascular: normal rate Respiratory/Chest: lungs clear Abdomen: normal bowel sounds Objective Current Medications Medications (Trade) Dose Ordered Sig/Maggie Route PRN Reason Start Time Stop Time Status Last Admin Dose Admin Acetaminophen (Tylenol) 500 mg Q4H PRN ORAL Mild Pain/Temp > 100.5 06/07/19 01:00 07/07/19 00:59 Albuterol/ Ipratropium (Albuterol/ Ipratropium) 3 ml Q6HRT PRN HHN Shortness of Breath 06/07/19 01:00 06/12/19 00:59 Atorvastatin Calcium (Lipitor) 20 mg BEDTIME ORAL 06/08/19 21:00 07/08/19 20:59 06/08/19 20:54 Barium Sulfate (Varibar Honey) 250 ml NOW PRN MC RAD 06/07/19 16:00 06/10/19 15:59 Barium Sulfate (Varibar [place]) 240 ml NOW PRN MC RAD 06/07/19 16:00 06/10/19 15:59 Barium Sulfate (Varibar Pudding) 230 ml NOW PRN MC RAD 06/07/19 16:00 06/10/19 15:59 Barium Sulfate (Varibar Thin Liquid powder) 148 gm NOW PRN MC RAD 06/07/19 16:00 06/10/19 15:59 Brimonidine Tartrate (Alphagan) 1 drop BID BOTH EYES 06/08/19 09:00 07/08/19 08:59 06/08/19 17:30 Calcium/Vitamin D (OsCal D) 1 tab DAILY ORAL 06/07/19 09:00 07/07/19 08:59 06/08/19 08:42 Ceftriaxone Sodium 1 gm/ Dextrose 55 ml @ 110 mls/hr Q24H IVPB 06/06/19 23:00 06/13/19 22:59 06/08/19 23:44 Clonidine HCl (Catapres Tab) 0.1 mg Q2H PRN ORAL For High Blood Pressure 06/07/19 10:30 07/07/19 10:29 Clopidogrel Bisulfate (Plavix) 75 mg DAILY ORAL 06/08/19 09:00 07/08/19 08:59 06/08/19 08:42 Dextrose (Dextrose 50%) 25 ml Q30M PRN IV Hypoglycemia 06/07/19 01:00 07/07/19 00:59 Dextrose (Dextrose 50%) 50 ml Q30M PRN IV Hypoglycemia 06/07/19 01:00 07/07/19 00:59 Heparin Sodium (Porcine) (Heparin 5000 units/ml) 5,000 units EVERY 12 HOURS SUBQ 06/07/19 21:00 07/07/19 20:59 06/08/19 20:55 Insulin Aspart (NovoLOG) BEFORE MEALS AND HS SUBQ 06/07/19 06:30 07/07/19 06:29 06/08/19 20:55 Timolol Maleate (Timoptic 0.5% Op Soln) 1 drop TWICE A DAY BOTH EYES 06/08/19 09:00 07/08/19 08:59 06/08/19 17:31 Tramadol HCl (Ultram) 50 mg Q6H PRN ORAL For Pain 06/07/19 03:00 06/14/19 02:59 John Mendoza MD Jun 09, 2019 05:59
[2019-06-09] MEDS: NovoLOG Insulin Flexpen SUBQ SCH ×2 (06:11→11:55)
--- NOTE | 2019-06-09 07:10 | NUR ---
HAND-OFF: Report given to LANNY Shah. Patient is asleep lying semi-glynn's; resting comfortably. In stable condition.
[2019-06-09 07:34] LABS: EOSINOPHILS % (AUTO) 4.9 % (0.0-3.0); HEMATOCRIT 31.1 % (42.0-52.0); HEMOGLOBIN 10.3 G/DL (14.2-18.0); LYMPHOCYTES % (AUTO) 27.4 % (20.0-45.0); MEAN CORPUSCULAR VOLUME 91 FL (80-99); MONOCYTES % (AUTO) 9.5 % (1.0-10.0); NEUTROPHILS % (AUTO) 57.1 % (45.0-75.0); PLATELET COUNT 469 K/UL (150-450); RED BLOOD COUNT 3.42 M/UL (4.70-6.10); RED CELL DISTRIBUTION WIDTH 11.6 % (11.6-14.8); WHITE BLOOD COUNT 10.9 K/UL (4.8-10.8)
[2019-06-09 07:41] LABS: ALANINE AMINOTRANSFERASE 19 U/L (12-78); ALBUMIN/GLOBULIN RATIO 0.7 (1.0-2.7); ALKALINE PHOSPHATASE 93 U/L (46-116); ANION GAP 11 mmol/L (5-15); ASPARTATE AMINO TRANSFERASE 19 U/L (15-37); BILIRUBIN,TOTAL 0.4 MG/DL (0.2-1.0); BLOOD UREA NITROGEN 6 mg/dL (7-18); CALCIUM 8.6 MG/DL (8.5-10.1); CARBON DIOXIDE 25 MMOL/L (21-32); CHLORIDE 107 MMOL/L (98-107); POTASSIUM 3.7 MMOL/L (3.5-5.1); SODIUM 143 MMOL/L (136-145)
[2019-06-09 08:00] VITALS: BP 133/72
[2019-06-09] MEDS: Timolol 0.5% Op Soln 2.5ml BOTH EYES SCH ×2 (08:11→11:54)
[2019-06-09] MEDS: Brimonidine 0.2% Opth Sol BOTH EYES SCH ×2 (08:11→11:54)
[2019-06-09] MEDS: Calcium Carbonate 500mg w/Vit D 200iu tab ORAL SCH (08:12)
[2019-06-09] MEDS: Heparin 5000 units/ml inj SUBQ SCH (08:13)
--- NOTE | 2019-06-09 09:24 | NUR ---
DISCHARGE PLANNING FAXED CLINICALS TO [facility] PER MD'S ORDER
--- NOTE | 2019-06-09 11:07 | Cardiac Electrophysiology PN ---
Assessment/Plan Assessment/Plan 1. Lightheadedness, dizziness. Echocardiogram EF 60%. Carotid duplex no critical stenosis. His EKG is completely normal. 2. History of hypertension.On p.r.n. clonidine 3. Diabetes, on insulin. 4. History of peripheral vascular disease, currently on Plavix. S/P stent in the left lower extremity. Refused to sign to get the records of the procedures from [facility] at [facility]. Arterial duplex of his lower extremity result: Impression: Evidence of stenosis, possibly significant, of the mid to distal right superficial femoral artery. Left femoral popliteal bypass graft is present, patent, without evidence of significant stenosis. No significant distal stenosis is seen on the left. On Plavix and add Lipitor 5. Lactic acidosis, possible sepsis. The patient is already on ceftriaxone and received vancomycin in the emergency room as well. 6. Questionable DVT. Lower extremity duplex is pending. The patient is on Lovenox. Further evaluation by Dr. Recio. TIERRA RN Subjective Subjective Feeling better. No CP or SOB.Alert in NAD. DC in progress Objective Last 24 Hour Vital Signs Date Time Temp Pulse Resp B/P (MAP) Pulse Ox O2 Delivery O2 Flow Rate FiO2 06/09/19 09:40 Room Air 06/09/19 08:00 97.9 92 18 133/72 (92) 97 06/09/19 08:00 101 06/09/19 04:00 81 06/09/19 04:00 98.0 81 20 145/57 (86) 95 06/09/19 00:00 97.4 67 20 128/59 (82) 97 06/09/19 00:00 61 06/08/19 21:00 Room Air 06/08/19 20:00 98.1 78 20 132/59 (83) 99 06/08/19 20:00 64 06/08/19 16:00 97.9 66 20 140/61 (87) 99 06/08/19 16:00 80 06/08/19 12:00 70 06/08/19 12:00 97.7 68 20 149/72 (97) 95 Intake and Output 06/08/19 06/09/19 19:00 07:00 Intake Total 175 ml Output Total 400 ml Balance -400 ml 175 ml Intake Oral 120 ml IV Total 55 ml Output Urine Total 400 ml # Voids 1 2 Laboratory Tests Test 06/09/19 05:40 White Blood Count 10.9 K/UL (4.8-10.8) H Red Blood Count 3.42 M/UL (4.70-6.10) L Hemoglobin 10.3 G/DL (14.2-18.0) L Hematocrit 31.1 % (42.0-52.0) L Mean Corpuscular Volume 91 FL (80-99) Mean Corpuscular Hemoglobin 30.2 PG (27.0-31.0) Mean Corpuscular Hemoglobin Concent 33.2 G/DL (32.0-36.0) Red Cell Distribution Width 11.6 % (11.6-14.8) Platelet Count 469 K/UL (150-450) H Mean Platelet Volume 5.6 FL (6.5-10.1) L Neutrophils (%) (Auto) 57.1 % (45.0-75.0) Lymphocytes (%) (Auto) 27.4 % (20.0-45.0) Monocytes (%) (Auto) 9.5 % (1.0-10.0) Eosinophils (%) (Auto) 4.9 % (0.0-3.0) H Basophils (%) (Auto) 1.0 % (0.0-2.0) Sodium Level 143 MMOL/L (136-145) Potassium Level 3.7 MMOL/L (3.5-5.1) Chloride Level 107 MMOL/L (98-107) Carbon Dioxide Level 25 MMOL/L (21-32) Anion Gap 11 mmol/L (5-15) Blood Urea Nitrogen 6 mg/dL (7-18) L Creatinine 1.0 MG/DL (0.55-1.30) Estimat Glomerular Filtration Rate mL/min (>60) Glucose Level 105 MG/DL (74-106) Calcium Level 8.6 MG/DL (8.5-10.1) Total Bilirubin 0.4 MG/DL (0.2-1.0) Aspartate Amino Transf (AST/SGOT) 19 U/L (15-37) Alanine Aminotransferase (ALT/SGPT) 19 U/L (12-78) Alkaline Phosphatase 93 U/L (46-116) Total Protein 7.5 G/DL (6.4-8.2) Albumin 3.0 G/DL (3.4-5.0) L Globulin 4.5 g/dL Albumin/Globulin Ratio 0.7 (1.0-2.7) L Microbiology Date/Time Source Procedure Growth Status 06/06/19 16:08 Blood Blood Culture - Preliminary NO GROWTH AFTER 48 HOURS Resulted 06/06/19 15:55 Blood Blood Culture - Preliminary NO GROWTH AFTER 48 HOURS Resulted 06/06/19 16:20 Nasal Nares - Final Complete 06/06/19 16:20 Nasal Nares - Final Complete 06/06/19 17:00 Straight Cath Urine Culture - Final NO GROWTH AFTER 48 HOURS Complete Objective HEAD AND NECK: No JVD or carotid bruits. LUNGS: Clear. CARDIOVASCULAR: Regular S1 and S2 with no gallop or murmur. ABDOMEN: Soft. EXTREMITIES: No pitting edema. Umer Harley MD Jun 09, 2019 11:07
[2019-06-09 12:00] VITALS: BP 135/74
--- NOTE | 2019-06-09 12:59 | Hematology/Onc Progress Note ---
Assessment/Plan Assessment/Plan Assessment and Recs: # Lower ext swelling of the left leg and active on the right -- the final imaging ishows no e/o dvt --> lovenox stopped --> no evidence of dvt --> venous duplex: evidence of stenosis, possibly significant, of the mid to distal right superficial femoral artery. --> only hep sq needed # Anemia of iron deficiency as noted in the past --> on ferrous sulfate po --> no hemolysis is noted --> meds reviewed --> have ordered for anemia panel # Thrombocytosis is likely reactive --> trend plt # Dizziness, confusion, weakness, found to be hypotensive and confused on exam --> continue on fluids # Distal sfv stenosis --> on plavix --> per Dr. Harley # Hypotensive but after fluid bolus patient BP improved and continued to stay stable. --> on fluids, to continue # DM2 -- accuchecks qac and qhs --> a1c goal <8 DW Rn and appreciate consultation Subjective Constitutional: Denies: no symptoms, chills, fever, malaise, weakness, other HEENT: Denies: no symptoms, eye pain, blurred vision, tearing, double vision, ear pain, ear discharge, nose pain, nose congestion, throat pain, throat swelling, mouth pain, mouth swelling, other Cardiovascular: Denies: no symptoms, chest pain, edema, irregular heart rate, lightheadedness, palpitations, syncope, other Respiratory: Denies: no symptoms, cough, shortness of breath, SOB with excertion, SOB at rest, sputum, wheezing, other Gastrointestinal/Abdominal: Denies: no symptoms, abdomen distended, abdominal pain, black stools, tarry stools, blood in stool, constipated, diarrhea, difficulty swallowing, nausea, poor appetite, poor fluid intake, rectal bleeding , vomiting, other Neurologic/Psychiatric: Denies: no symptoms, anxiety, depressed, emotional problems, headache, numbness, paresthesia, pre-existing deficit, seizure, tingling, tremors, weakness, other Endocrine: Denies: no symptoms, excessive sweating, flushing, intolerance to cold, intolerance to heat, increased hunger, increased thirst, increased urine, unexplained weight gain, unexplained weight loss, other Allergies: Coded Allergies: No Known Allergies (Verified , 07/25/09) Subjective 06/08: no acute events, us venous duplex reviewed, dc lovenox, started on heparin 06/09: no major changes, labs noted, no bleeding, no f/c, no night sweats Objective Objective Current Medications Medications (Trade) Dose Ordered Sig/Maggie Route PRN Reason Start Time Stop Time Status Last Admin Dose Admin Acetaminophen (Tylenol) 500 mg Q4H PRN ORAL Mild Pain/Temp > 100.5 06/07/19 01:00 07/07/19 00:59 Albuterol/ Ipratropium (Albuterol/ Ipratropium) 3 ml Q6HRT PRN HHN Shortness of Breath 06/07/19 01:00 06/12/19 00:59 Atorvastatin Calcium (Lipitor) 20 mg BEDTIME ORAL 06/08/19 21:00 07/08/19 20:59 06/08/19 20:54 Barium Sulfate (Varibar Honey) 250 ml NOW PRN MC RAD 06/07/19 16:00 06/10/19 15:59 Barium Sulfate (Varibar [place]) 240 ml NOW PRN MC RAD 06/07/19 16:00 06/10/19 15:59 Barium Sulfate (Varibar Pudding) 230 ml NOW PRN MC RAD 06/07/19 16:00 06/10/19 15:59 Barium Sulfate (Varibar Thin Liquid powder) 148 gm NOW PRN MC RAD 06/07/19 16:00 06/10/19 15:59 Brimonidine Tartrate (Alphagan) 1 drop BID BOTH EYES 06/08/19 09:00 07/08/19 08:59 06/09/19 11:54 Calcium/Vitamin D (OsCal D) 1 tab DAILY ORAL 06/07/19 09:00 07/07/19 08:59 06/09/19 08:12 Ceftriaxone Sodium 1 gm/ Dextrose 55 ml @ 110 mls/hr Q24H IVPB 06/06/19 23:00 06/13/19 22:59 06/08/19 23:44 Clonidine HCl (Catapres Tab) 0.1 mg Q2H PRN ORAL For High Blood Pressure 06/07/19 10:30 07/07/19 10:29 Clopidogrel Bisulfate (Plavix) 75 mg DAILY ORAL 06/08/19 09:00 07/08/19 08:59 06/09/19 08:12 Dextrose (Dextrose 50%) 25 ml Q30M PRN IV Hypoglycemia 06/07/19 01:00 07/07/19 00:59 Dextrose (Dextrose 50%) 50 ml Q30M PRN IV Hypoglycemia 06/07/19 01:00 07/07/19 00:59 Heparin Sodium (Porcine) (Heparin 5000 units/ml) 5,000 units EVERY 12 HOURS SUBQ 06/07/19 21:00 07/07/19 20:59 06/09/19 08:13 Insulin Aspart (NovoLOG) BEFORE MEALS AND HS SUBQ 06/07/19 06:30 07/07/19 06:29 06/09/19 11:55 Sitagliptin Phosphate (Januvia) 100 mg ACBREAKFAST ORAL 06/09/19 06:30 07/09/19 06:29 Timolol Maleate (Timoptic 0.5% Op Soln) 1 drop TWICE A DAY BOTH EYES 06/08/19 09:00 07/08/19 08:59 06/09/19 11:54 Tramadol HCl (Ultram) 50 mg Q6H PRN ORAL For Pain 06/07/19 03:00 06/14/19 02:59 Last 24 Hour Vital Signs Date Time Temp Pulse Resp B/P (MAP) Pulse Ox O2 Delivery O2 Flow Rate FiO2 06/09/19 12:00 97.9 66 18 135/74 (94) 99 06/09/19 09:40 Room Air 06/09/19 08:00 97.9 92 18 133/72 (92) 97 06/09/19 08:00 101 06/09/19 04:00 81 06/09/19 04:00 98.0 81 20 145/57 (86) 95 06/09/19 00:00 97.4 67 20 128/59 (82) 97 06/09/19 00:00 61 06/08/19 21:00 Room Air 06/08/19 20:00 98.1 78 20 132/59 (83) 99 06/08/19 20:00 64 06/08/19 16:00 97.9 66 20 140/61 (87) 99 06/08/19 16:00 80 06/08/19 12:00 70 06/08/19 12:00 97.7 68 20 149/72 (97) 95 06/08/19 09:52 Room Air Room Air 06/08/19 08:00 84 06/08/19 08:00 98.2 71 20 133/84 (100) 99 06/08/19 04:19 60 20 95 Room Air 21 06/08/19 04:00 95 06/08/19 04:00 97.7 80 18 159/75 (103) 95 06/08/19 00:00 98.0 70 16 129/59 (82) 96 06/08/19 00:00 70 06/07/19 21:00 Room Air 06/07/19 20:00 67 06/07/19 20:00 98.1 65 15 131/61 (84) 95 06/07/19 16:00 97.7 67 155/73 (100) 16 06/07/19 16:00 64 Intake and Output 06/08/19 06/09/19 19:00 07:00 Intake Total 175 ml Output Total 400 ml Balance -400 ml 175 ml Intake Oral 120 ml IV Total 55 ml Output Urine Total 400 ml # Voids 1 2 Labs Test 06/06/19 16:00 06/06/19 17:00 06/06/19 17:55 06/07/19 05:33 White Blood Count 16.3 K/UL (4.8-10.8) 13.0 K/UL (4.8-10.8) Red Blood Count 3.11 M/UL (4.70-6.10) 3.17 M/UL (4.70-6.10) Hemoglobin 9.4 G/DL (14.2-18.0) 9.7 G/DL (14.2-18.0) Hematocrit 28.1 % (42.0-52.0) 29.0 % (42.0-52.0) Mean Corpuscular Volume 90 FL (80-99) 92 FL (80-99) Mean Corpuscular Hemoglobin 30.3 PG (27.0-31.0) 30.5 PG (27.0-31.0) Mean Corpuscular Hemoglobin Concent 33.5 G/DL (32.0-36.0) 33.3 G/DL (32.0-36.0) Red Cell Distribution Width 10.1 % (11.6-14.8) 11.3 % (11.6-14.8) Platelet Count 395 K/UL (150-450) 421 K/UL (150-450) Mean Platelet Volume 5.8 FL (6.5-10.1) 5.7 FL (6.5-10.1) Neutrophils (%) (Auto) 72.3 % (45.0-75.0) 64.9 % (45.0-75.0) Lymphocytes (%) (Auto) 16.7 % (20.0-45.0) 22.4 % (20.0-45.0) Monocytes (%) (Auto) 7.1 % (1.0-10.0) 8.0 % (1.0-10.0) Eosinophils (%) (Auto) 3.0 % (0.0-3.0) 4.1 % (0.0-3.0) Basophils (%) (Auto) 0.9 % (0.0-2.0) 0.7 % (0.0-2.0) Sodium Level 143 MMOL/L (136-145) 146 MMOL/L (136-145) Potassium Level 4.4 MMOL/L (3.5-5.1) 3.9 MMOL/L (3.5-5.1) Chloride Level 109 MMOL/L (98-107) 114 MMOL/L (98-107) Carbon Dioxide Level 25 MMOL/L (21-32) 24 MMOL/L (21-32) Anion Gap 10 mmol/L (5-15) 8 mmol/L (5-15) Blood Urea Nitrogen 12 mg/dL (7-18) 8 mg/dL (7-18) Creatinine 1.4 MG/DL (0.55-1.30) 0.9 MG/DL (0.55-1.30) Estimat Glomerular Filtration Rate mL/min (>60) mL/min (>60) Glucose Level 218 MG/DL (74-106) 95 MG/DL (74-106) Lactic Acid Level 3.40 mmol/L (0.4-2.0) 2.80 mmol/L (0.66-2.22) 1.00 mmol/L (0.4-2.0) Calcium Level 8.0 MG/DL (8.5-10.1) 7.7 MG/DL (8.5-10.1) Phosphorus Level 2.9 MG/DL (2.5-4.9) Magnesium Level 1.8 MG/DL (1.8-2.4) Total Bilirubin 0.3 MG/DL (0.2-1.0) 0.5 MG/DL (0.2-1.0) Aspartate Amino Transf (AST/SGOT) 22 U/L (15-37) 19 U/L (15-37) Alanine Aminotransferase (ALT/SGPT) 22 U/L (12-78) 21 U/L (12-78) Alkaline Phosphatase 88 U/L (46-116) 84 U/L (46-116) Total Creatine Kinase 43 U/L (26-308) Creatine Kinase MB 0.6 NG/ML (0.0-3.6) Creatine Kinase MB Relative Index 1.3 Troponin I 0.000 ng/mL (0.000-0.056) Pro-B-Type Natriuretic Peptide 450 pg/mL (0-125) Total Protein 7.2 G/DL (6.4-8.2) 6.6 G/DL (6.4-8.2) Albumin 3.1 G/DL (3.4-5.0) 2.8 G/DL (3.4-5.0) Globulin 4.1 g/dL 3.8 g/dL Albumin/Globulin Ratio 0.8 (1.0-2.7) 0.7 (1.0-2.7) Lipase 142 U/L (73-393) Urine Color Yellow Urine Appearance Clear Urine pH 5 (4.5-8.0) Urine Specific [place] 1.020 (1.005-1.035) Urine Protein Negative (NEGATIVE) Urine Glucose (UA) 2+ (NEGATIVE) Urine Ketones 1+ (NEGATIVE) Urine Blood Negative (NEGATIVE) Urine Nitrite Negative (NEGATIVE) Urine Bilirubin Negative (NEGATIVE) Urine Urobilinogen 1 MG/DL (0.0-1.0) Urine Leukocyte Esterase Negative (NEGATIVE) Reticulocyte Count 2.4 % (0.5-2.0) Iron Level 75 ug/dL (50-175) Total Iron Binding Capacity 224 ug/dL (250-450) Percent Iron Saturation 33 % (15-50) Unsaturated Iron Binding 149 ug/dL (112-346) Ferritin 55 NG/ML (8-388) Lactate Dehydrogenase 176 U/L (81-234) Carcinoembryonic Antigen 2.1 ng/mL (0.0-4.7) Vitamin B12 Level 499 PG/ML (193-986) Thyroid Stimulating Hormone (TSH) 1.754 uiU/mL (0.358-3.740) Test 06/07/19 05:38 06/07/19 16:10 06/07/19 22:30 06/08/19 04:50 Troponin I 0.004 ng/mL (0.000-0.056) 0.000 ng/mL (0.000-0.056) 0.000 ng/mL (0.000-0.056) White Blood Count 11.6 K/UL (4.8-10.8) Red Blood Count 3.42 M/UL (4.70-6.10) Hemoglobin 10.6 G/DL (14.2-18.0) Hematocrit 31.2 % (42.0-52.0) Mean Corpuscular Volume 91 FL (80-99) Mean Corpuscular Hemoglobin 30.9 PG (27.0-31.0) Mean Corpuscular Hemoglobin Concent 33.9 G/DL (32.0-36.0) Red Cell Distribution Width 11.3 % (11.6-14.8) Platelet Count 414 K/UL (150-450) Mean Platelet Volume 5.3 FL (6.5-10.1) Neutrophils (%) (Auto) 61.4 % (45.0-75.0) Lymphocytes (%) (Auto) 25.7 % (20.0-45.0) Monocytes (%) (Auto) 7.5 % (1.0-10.0) Eosinophils (%) (Auto) 4.2 % (0.0-3.0) Basophils (%) (Auto) 1.2 % (0.0-2.0) Sodium Level 143 MMOL/L (136-145) Potassium Level 3.9 MMOL/L (3.5-5.1) Chloride Level 107 MMOL/L (98-107) Carbon Dioxide Level 25 MMOL/L (21-32) Anion Gap 11 mmol/L (5-15) Blood Urea Nitrogen 6 mg/dL (7-18) Creatinine 1.0 MG/DL (0.55-1.30) Estimat Glomerular Filtration Rate mL/min (>60) Glucose Level 113 MG/DL (74-106) Calcium Level 8.1 MG/DL (8.5-10.1) Total Bilirubin 0.4 MG/DL (0.2-1.0) Aspartate Amino Transf (AST/SGOT) 19 U/L (15-37) Alanine Aminotransferase (ALT/SGPT) 21 U/L (12-78) Alkaline Phosphatase 90 U/L (46-116) Total Protein 7.2 G/DL (6.4-8.2) Albumin 2.9 G/DL (3.4-5.0) Globulin 4.3 g/dL Albumin/Globulin Ratio 0.7 (1.0-2.7) Test 06/09/19 05:40 White Blood Count 10.9 K/UL (4.8-10.8) Red Blood Count 3.42 M/UL (4.70-6.10) Hemoglobin 10.3 G/DL (14.2-18.0) Hematocrit 31.1 % (42.0-52.0) Mean Corpuscular Volume 91 FL (80-99) Mean Corpuscular Hemoglobin 30.2 PG (27.0-31.0) Mean Corpuscular Hemoglobin Concent 33.2 G/DL (32.0-36.0) Red Cell Distribution Width 11.6 % (11.6-14.8) Platelet Count 469 K/UL (150-450) Mean Platelet Volume 5.6 FL (6.5-10.1) Neutrophils (%) (Auto) 57.1 % (45.0-75.0) Lymphocytes (%) (Auto) 27.4 % (20.0-45.0) Monocytes (%) (Auto) 9.5 % (1.0-10.0) Eosinophils (%) (Auto) 4.9 % (0.0-3.0) Basophils (%) (Auto) 1.0 % (0.0-2.0) Sodium Level 143 MMOL/L (136-145) Potassium Level 3.7 MMOL/L (3.5-5.1) Chloride Level 107 MMOL/L (98-107) Carbon Dioxide Level 25 MMOL/L (21-32) Anion Gap 11 mmol/L (5-15) Blood Urea Nitrogen 6 mg/dL (7-18) Creatinine 1.0 MG/DL (0.55-1.30) Estimat Glomerular Filtration Rate mL/min (>60) Glucose Level 105 MG/DL (74-106) Calcium Level 8.6 MG/DL (8.5-10.1) Total Bilirubin 0.4 MG/DL (0.2-1.0) Aspartate Amino Transf (AST/SGOT) 19 U/L (15-37) Alanine Aminotransferase (ALT/SGPT) 19 U/L (12-78) Alkaline Phosphatase 93 U/L (46-116) Total Protein 7.5 G/DL (6.4-8.2) Albumin 3.0 G/DL (3.4-5.0) Globulin 4.5 g/dL Albumin/Globulin Ratio 0.7 (1.0-2.7) Height (Feet): 5 Height (Inches): 5.00 Weight (Pounds): 151 Objective Physical Exam Vital Signs: reviewed Gen: well appearing, no apparent distress, nt HEENT: normocephalic, atraumatic, bilateral eye normal inspection ENT: hearing grossly normal, EOM grossly intact, moist mucus membrane PulM: lungs clear, normal breath sounds CV: regular rate, rhythm, no mgr Neuro: non-focal Galen Recio MD Jun 09, 2019 12:59
--- NOTE | 2019-06-09 13:15 | Infectious Diseases Prog Note ---
Assessment/Plan Assessment/Plan IMPRESSION: 1. Leukocytosis, resolved 2. COPD. 3. Asthma. 4. Diabetes mellitus type 2. 5. Dizziness. 6. Hypertension. 7. Anemia. 8. Nicotine dependence. RECOMMENDATION: We will change ceftriaxone to Levaquin X 3 days Agree with discharge Subjective ROS Limited/Unobtainable: No Constitutional: Reports: no symptoms, other - doing better Respiratory: Reports: no symptoms Gastrointestinal/Abdominal: Reports: no symptoms Genitourinary: Reports: no symptoms Allergies: Coded Allergies: No Known Allergies (Verified , 07/25/09) Objective Vital Signs Last 24 Hour Vital Signs Date Time Temp Pulse Resp B/P (MAP) Pulse Ox O2 Delivery O2 Flow Rate FiO2 06/09/19 12:00 97.9 66 18 135/74 (94) 99 06/09/19 09:40 Room Air 06/09/19 08:00 97.9 92 18 133/72 (92) 97 06/09/19 08:00 101 06/09/19 04:00 81 06/09/19 04:00 98.0 81 20 145/57 (86) 95 06/09/19 00:00 97.4 67 20 128/59 (82) 97 06/09/19 00:00 61 06/08/19 21:00 Room Air 06/08/19 20:00 98.1 78 20 132/59 (83) 99 06/08/19 20:00 64 06/08/19 16:00 97.9 66 20 140/61 (87) 99 06/08/19 16:00 80 Height (Feet): 5 Height (Inches): 5.00 Weight (Pounds): 151 General Appearance: no acute distress HEENT: mucous membranes moist Respiratory/Chest: lungs clear Cardiovascular: normal rate Abdomen: soft, non tender Extremities: no edema Neurologic/Psychiatric: alert, oriented x 3, responsive Microbiology Date/Time Source Procedure Growth Status 06/06/19 16:08 Blood Blood Culture - Preliminary NO GROWTH AFTER 48 HOURS Resulted 06/06/19 15:55 Blood Blood Culture - Preliminary NO GROWTH AFTER 48 HOURS Resulted 06/06/19 16:20 Nasal Nares - Final Complete 06/06/19 16:20 Nasal Nares - Final Complete 06/06/19 17:00 Straight Cath Urine Culture - Final NO GROWTH AFTER 48 HOURS Complete Laboratory Tests Test 06/09/19 05:40 White Blood Count 10.9 K/UL (4.8-10.8) H Red Blood Count 3.42 M/UL (4.70-6.10) L Hemoglobin 10.3 G/DL (14.2-18.0) L Hematocrit 31.1 % (42.0-52.0) L Mean Corpuscular Volume 91 FL (80-99) Mean Corpuscular Hemoglobin 30.2 PG (27.0-31.0) Mean Corpuscular Hemoglobin Concent 33.2 G/DL (32.0-36.0) Red Cell Distribution Width 11.6 % (11.6-14.8) Platelet Count 469 K/UL (150-450) H Mean Platelet Volume 5.6 FL (6.5-10.1) L Neutrophils (%) (Auto) 57.1 % (45.0-75.0) Lymphocytes (%) (Auto) 27.4 % (20.0-45.0) Monocytes (%) (Auto) 9.5 % (1.0-10.0) Eosinophils (%) (Auto) 4.9 % (0.0-3.0) H Basophils (%) (Auto) 1.0 % (0.0-2.0) Sodium Level 143 MMOL/L (136-145) Potassium Level 3.7 MMOL/L (3.5-5.1) Chloride Level 107 MMOL/L (98-107) Carbon Dioxide Level 25 MMOL/L (21-32) Anion Gap 11 mmol/L (5-15) Blood Urea Nitrogen 6 mg/dL (7-18) L Creatinine 1.0 MG/DL (0.55-1.30) Estimat Glomerular Filtration Rate mL/min (>60) Glucose Level 105 MG/DL (74-106) Calcium Level 8.6 MG/DL (8.5-10.1) Total Bilirubin 0.4 MG/DL (0.2-1.0) Aspartate Amino Transf (AST/SGOT) 19 U/L (15-37) Alanine Aminotransferase (ALT/SGPT) 19 U/L (12-78) Alkaline Phosphatase 93 U/L (46-116) Total Protein 7.5 G/DL (6.4-8.2) Albumin 3.0 G/DL (3.4-5.0) L Globulin 4.5 g/dL Albumin/Globulin Ratio 0.7 (1.0-2.7) L Current Medications Medications (Trade) Dose Ordered Sig/Maggie Route PRN Reason Start Time Stop Time Status Last Admin Dose Admin Acetaminophen (Tylenol) 500 mg Q4H PRN ORAL Mild Pain/Temp > 100.5 06/07/19 01:00 07/07/19 00:59 Albuterol/ Ipratropium (Albuterol/ Ipratropium) 3 ml Q6HRT PRN HHN Shortness of Breath 06/07/19 01:00 06/12/19 00:59 Atorvastatin Calcium (Lipitor) 20 mg BEDTIME ORAL 06/08/19 21:00 07/08/19 20:59 06/08/19 20:54 Barium Sulfate (Varibar Honey) 250 ml NOW PRN MC RAD 06/07/19 16:00 06/10/19 15:59 Barium Sulfate (Varibar [place]) 240 ml NOW PRN MC RAD 06/07/19 16:00 06/10/19 15:59 Barium Sulfate (Varibar Pudding) 230 ml NOW PRN MC RAD 06/07/19 16:00 06/10/19 15:59 Barium Sulfate (Varibar Thin Liquid powder) 148 gm NOW PRN MC RAD 06/07/19 16:00 06/10/19 15:59 Brimonidine Tartrate (Alphagan) 1 drop BID BOTH EYES 06/08/19 09:00 07/08/19 08:59 06/09/19 11:54 Calcium/Vitamin D (OsCal D) 1 tab DAILY ORAL 06/07/19 09:00 07/07/19 08:59 06/09/19 08:12 Ceftriaxone Sodium 1 gm/ Dextrose 55 ml @ 110 mls/hr Q24H IVPB 06/06/19 23:00 06/13/19 22:59 06/08/19 23:44 Clonidine HCl (Catapres Tab) 0.1 mg Q2H PRN ORAL For High Blood Pressure 06/07/19 10:30 07/07/19 10:29 Clopidogrel Bisulfate (Plavix) 75 mg DAILY ORAL 06/08/19 09:00 07/08/19 08:59 06/09/19 08:12 Dextrose (Dextrose 50%) 25 ml Q30M PRN IV Hypoglycemia 1/8/20 01:00 07/07/19 00:59 Dextrose (Dextrose 50%) 50 ml Q30M PRN IV Hypoglycemia 06/07/19 01:00 07/07/19 00:59 Heparin Sodium (Porcine) (Heparin 5000 units/ml) 5,000 units EVERY 12 HOURS SUBQ 06/07/19 21:00 07/07/19 20:59 06/09/19 08:13 Insulin Aspart (NovoLOG) BEFORE MEALS AND HS SUBQ 06/07/19 06:30 07/07/19 06:29 06/09/19 11:55 Sitagliptin Phosphate (Januvia) 100 mg ACBREAKFAST ORAL 06/09/19 06:30 07/09/19 06:29 Timolol Maleate (Timoptic 0.5% Op Soln) 1 drop TWICE A DAY BOTH EYES 06/08/19 09:00 07/08/19 08:59 06/09/19 11:54 Tramadol HCl (Ultram) 50 mg Q6H PRN ORAL For Pain 06/07/19 03:00 06/14/19 02:59 Nii Rodriguez MD Jun 09, 2019 13:15
--- NOTE | 2019-06-09 13:45 | NUR ---
Social Work Daughter, Radha Waite ([phone]) requesting to speak with this SW, who (along with patient) both explained they do not want SNF placement, preferring to return home with family (home care for IV ABX, as needed). Patient remains ambulatory and has good support from family for discharge to home. informed who explains will change to P.O antibiotics. TERRY Bañuelos informed.
--- NOTE | 2019-06-09 15:08 | NUR ---
PATIENT DISCHARGED WITH HIS BELONGING AND PO ATB NO C/O PAIN OR SOB, VITAL SIGNS TABLE.
--- NOTE | 2019-06-11 09:39 | Discharge Summary ---
Discharge Summary Discharge Summary _ DATE OF ADMISSION: 06/06/2019 DATE OF DISCHARGE: 06/09/2019 DISCHARGED BY: Dr. Clemente Obregon CONSULTANTS: Dr. John Nieto [facility] COURSE: The patient is an 83-year-old male, who presented to the emergency room due to weakness and dizziness, found to be hypotensive by EMS. Patient reported he went to bed feeling well, in the morning when he woke up, he felt very weak, tired and confused. Family checked his blood glucose and was in the 260s. Patient felt dizzy and unsteady. He has medical history significant for diabetes mellitus, hypertension, asthma, CVA with left hemiparesis, history of lung cancer, who and DVT, on anticoagulation. He denied any chest pain or shortness of breath. Upon arrival to ED, he was initially hypotensive, which improved after fluid resuscitation. Blood work showed WBC 16. Hemoglobin 9, hematocrit 28. Electrolytes were normal. Creatinine elevated to 1.4. Lactic acid 3.4. Glucose level 218. Troponin negative. Urinalysis negative. Influenza screen negative. CT of the head without contrast showed no acute intracranial pathology. There was concern for posterior cerebral CVA. He was then admitted for evaluation of generalized weakness. He was admitted to telemetry. He was placed on IV hydration. He passed swallow evaluation in ED. He was started on diabetic diet. He was continued on ferrous sulfate for anemia. Blood glucose was monitored. As outpatient, patient was taking metformin and Tradjenta. Metformin was discontinued due to elevated lactic acid. He was placed on NovoLog sliding scale. Tradjenta was placed on hold. Patient has a history of peripheral vascular disease who stated he had peripheral intervention by [place] [facility] in [facility]. He was supposed to have another stent in his right leg by Dr. Dino Pillai, but got admitted to the hospital. He was placed on Lovenox subcutaneous. Venous duplex was ordered. Patient had lightheadedness and dizziness. EKG was normal. Carotid duplex scan did not show any significant extracranial carotid artery stenosis. ICA stenosis is less than 50%. He presented with leukocytosis. He was given ceftriaxone empirically. Arterial duplex scan of the lower extremities showed evidence of stenosis, possibly significant, mid to distal right superficial femoral artery. Left femoral popliteal bypass graft present, patent, without evidence of significant stenosis. Patient was given Plavix, Lipitor was added to his regimen. Venous duplex scan of the lower extremity did not show any acute DVT. Lovenox was discontinued. He was given heparin subcutaneous. Vascular surgeon was consulted. Left leg prior bypass was patent on duplex. Patient recommended dual antiplatelet therapy with statin. No vascular intervention indicated at this time. Advised to follow-up with surgeon as outpatient. Blood glucose stable. Continue off metformin. Patient was started on Januvia 100 mg daily. Urine culture did not isolate any growth. Blood culture with no growth. Rocephin discontinued. He was eventually discharged home. FINAL DIAGNOSES: Peripheral vascular disease Uncontrolled diabetes type 2 Hypertension Iron deficiency anemia Thrombocytosis, likely reactive Leukocytosis, resolved COPD Asthma DISPOSITION: Patient was discharged home. DISCHARGE MEDICATIONS: Refer to Discharge Medication List. DISCHARGE INSTRUCTIONS: Follow-up in a week. I have been assigned to complete a discharge summary on this account, I was not involved with the patient's management.--RADHA Olivarez Jacqueline Robles NP Jun 11, 2019 09:39
== END 2019-06-09 14:15 | disposition home health service (06) | DRG 300 ==
LOC: EDBD 15:47 → EMR 17:13 → 2E 17:17 → EDBEDREQ 20:25 → 2E 20:48
DX: I73.89 Other specified peripheral vascular diseases (principal); E87.2 Acidosis; I69.354 Hemiplegia and hemiparesis following cerebral infarction affecting left non-dominant side; I10 Essential (primary) hypertension; R53.1 Weakness; Z86.718 Personal history of other venous thrombosis and embolism; Z85.118 Personal history of other malignant neoplasm of bronchus and lung; Z79.02 Long term (current) use of antithrombotics/antiplatelets; Z79.84 Long term (current) use of oral hypoglycemic drugs; Z87.891 Personal history of nicotine dependence; E11.65 Type 2 diabetes mellitus with hyperglycemia; D50.9 Iron deficiency anemia, unspecified; J44.9 Chronic obstructive pulmonary disease, unspecified; E78.5 Hyperlipidemia, unspecified; F17.200 Nicotine dependence, unspecified, uncomplicated
CPT/HCPCS: 36415; 70450; 71045; 80053; 81003; 82378; 82550; 82553; 82607; 82728; 82962; 83540; 83550; 83605; 83615; 83690; 83735; 83880; 84100; 84443; 84484; 85025; 85044; 86710; 87040; 87086; 92610; 93005; 93306; 93880; 93925; 93970; 94664; 96361; 96365; 96368; 99285; J1815; J7030